=== PATIENT | female | born 1935 | race Caucasian/White ===

== ENCOUNTER 2016-05-02 11:31 | Inpatient (IN) ==
--- NOTE | 2016-05-02 11:49 | Emergency Department Note ---
Disposition Clinical Impression: Tachycardia, Unable to ambulate Lower extremity weakness Qualifiers: Laterality: bilateral Qualified Code(s): R29.898 - Other symptoms and signs involving the musculoskeletal system Disposition: Admitted As Inpatient Condition: Good Referrals: Ana Oliveros MD [Primary Care Provider] - Forms: ED Satisfaction Letter Weakness HPI - General Chief complaint: ED Weakness Stated complaint: shaky/legs are weak Time Seen by Provider: 05/02/16 11:36 Source: patient, EMS Mode of arrival: EMS Limitations: no limitations Nursing Notes Reviewed: Yes Vital Signs Reviewed: Yes - History of Present Illness HPI Narrative: E1-year-old female presents to the ER with a chief complaint of lower cavity weakness. Patient reports that Friday she fell and was seen here. States that it felt like her right leg went out from underneath her. Denies any prodromal symptoms. States that since then she has had shaking to her upper extremities. Also reports continued weakness in her lower extremities. She denies numbness, tingling, pain. No bowel or bladder incontinence. No recent illnesses. Reports that her family told her she had to come to the hospital. She reports that she does not want to be admitted. No other complaints. Pt Subjective Complaint: generalized weakness/fatigue, other (Lower extremity weakness) Onset (ago): day(s) Duration: constant Location: LLE, RLE Migration: none Pain Severity: none Pain Scale: 5 Improves with: none Worsens with: none Context: other (Recent fall) Associated symptoms: Reports: other (Denies numbness or tingling). Denies: chest pain, fever/chills, headaches - Related Data Home Medications Medication Instructions Recorded Confirmed Lactose-Reduced Food [Boost Breeze] 237 ml PO BID 10/24/15 05/02/16 Atorvastatin [Lipitor] 10 mg PO HS 12/03/15 05/02/16 Amlodipine Bes/Olmesartan Med 1 each PO DAILY 05/02/16 05/02/16 [Cuate 10-40 mg Tablet] Aspirin Enteric Coated [Aspirin EC] 81 mg PO DAILY 05/02/16 05/02/16 Carvedilol 12.5 mg PO BID 05/02/16 05/02/16 Mirtazapine [Remeron] 15 mg PO HS 05/02/16 05/02/16 Oxycodone HCl/Acetaminophen 1 each PO BID PRN 05/02/16 05/02/16 [Percocet 10-325 mg Tablet] Previous Rx's Medication Instructions Recorded Nitroglycerin 0.4 mg SL Q5MIN PRN #0 tab.subl 10/25/15 Isosorbide MONOnitrate (24 HR) 30 mg PO DAILY #30 tab.er.24h 12/05/15 [Imdur] Allergies Allergy/AdvReac Type Severity Reaction Status Date / Time No Known Allergies Allergy Verified 12/17/14 19:28 All systems ED: reviewed and negative except as stated. Constitutional: Denies: fever Cardiovascular: Denies: chest pain Respiratory: Denies: cough, dyspnea Gastrointestinal: Denies: abdominal pain Musculoskeletal: Denies: back pain, neck pain Neurological: Reports: weakness. Denies: headache, numbness, paresthesias Past Medical History - Past Medical History Attestation: Yes The following information was validated with the patient. 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: non-contributory - Social History Smoking Status: Never smoker Smokeless Tobacco Status: No Alcohol use: Reports: none Drug use: Reports: none Physical Exam - General Limitations: no limitations General appearance: alert, in no apparent distress - Head Head exam: atraumatic, normocephalic, normal inspection - Eye Eye exam: Present: normal appearance, EOMI - ENT ENT exam: normal exam - Neck Neck exam: Present: normal inspection - Chest Chest inspection: Present: normal inspection, symmetric chest wall rise - Respiratory Respiratory exam: Present: normal lung sounds bilaterally - Cardiovascular Cardiovascular exam: Present: normal rhythm, tachycardia, normal heart sounds - Abdominal Exam Abdominal exam: Present: soft, Non-Tender. Absent: tenderness - Extremities Exam Extremities exam: Present: normal inspection, full ROM - Expanded Upper Extremity Exam Shoulder exam: Present: normal inspection, full ROM Arm exam: Present: normal inspection, full ROM Elbow exam: Present: normal inspection, full ROM Forearm/Wrist exam: Present: normal inspection, full ROM Hand exam: Present: normal inspection, full ROM - Expanded Lower Extremity Exam Hip/Pelvis exam: Present: normal inspection, full ROM Upper leg exam: Present: normal inspection, full ROM Knee exam: Present: normal inspection, full ROM Lower leg exam: Present: normal inspection, full ROM Ankle exam: Present: normal inspection, full ROM Foot/toe exam: Present: normal inspection, full ROM - Neurological Exam Neurological exam: Present: alert, oriented X3, CN II-XII intact - Expanded Neurological Exam Patient oriented to: Present: person, place, time Speech: Present: fluid speech Cranial nerves: EOM function (II, III, IV, ): Normal, facial sensation (V): Normal, spinal accessory function (XI): Normal, tongue deviation (XII): Normal Motor strength - LUE: 4/5 Motor strength - RUE: 4/5 Motor strength - LLE: 4/5 Motor strength - RLE: 4/5 Sensory exam upper extremity: light touch: Normal Sensory exam lower extremity: light touch: Normal Coma Scale Eye Opening: Spontaneous Coma Scale Motor Response: Obeys Commands Coma Scale Verbal Response: Oriented Coma Scale Total: 15 - Psychiatric Psychiatric exam: Present: normal affect, normal mood - Skin Skin exam: Present: warm, dry, intact, normal color Course Course Narrative: Patient seen and examined. Vital signs reviewed. Plan for patient is basic labs, urinalysis and chest x-ray. - Reevaluation(s) Reevaluation #1: Discussed results of imaging and lab work with the patient. She requests to be discharged home. Reevaluation #2: Attempted to get orthostatic vitals on the patient. She was unable to stand and her heart rate did elevate to the 140s. Patient agreeable with admission. Reevaluation #3: CT negative for PE. Vital Signs Temperature 98.3 F 05/02/16 11:32 Pulse Rate 124 05/02/16 11:32 Respiratory Rate 18 05/02/16 11:32 Blood Pressure 138/102 05/02/16 11:32 O2 Sat by Pulse Oximetry 97 05/02/16 11:32 Temperature 98.3 F 05/02/16 11:32 Pulse Rate 120 05/02/16 18:30 Respiratory Rate 18 05/02/16 18:30 Blood Pressure 126/80 05/02/16 18:30 O2 Sat by Pulse Oximetry 95 05/02/16 18:30 Oxygen Delivery Oxygen Delivery Room Air Weakness - MDM Narrative Medical decision making narrative: 81-year-old female presents to the ER due to lower extremity weakness. Here her lab work shows no gross abnormalities. She was unable to ambulate in the department and she is persistently tachycardic. She has no focal deficits, saddle anesthesia, fevers or bowel or bladder incontinence. This case was discussed with the hospitalist. They request a CTA of the chest to rule out PE due to her persistent tachycardia. Patient will be admitted for further management. - Lab Data Lab results reviewed: Yes I reviewed the patient's lab results. Result diagrams: 05/02/16 12:22 05/02/16 12:22 Lab Results 05/02/16 05/02/16 05/02/16 Range/Units 11:39 12:22 12:22 WBC 7.7 (4.3-11.1) K/mcL RBC 3.55 L (3.82-4.97) M/mcL Hgb 11.5 (11.5-15.4) g/dL Hct 34.0 L (35.3-44.9) % MCV 95.8 (83.0-100.0) fL MCH 32.4 (28.0-33.3) pg MCHC 33.8 (31.6-35.5) g/dL RDW 12.6 (11.5-14.5) % Plt Count 160 (140-400) K/mcL MPV 10.5 (9.4-12.4) fL Immature Gran % 0.3 (0-4) % Seg Neutrophils % 78.5 % Lymphocytes % 12.5 % Monocytes % 8.5 % Eosinophils % 0.1 % Basophils % 0.1 % Neutrophils # 6.0 (1.6-8.9) K/mcL Lymphocytes # 1.0 (0.6-4.6) K/mcL Monocytes # 0.7 (0.0-1.3) K/mcL Eosinophils # 0.0 (0.0-0.6) K/mcL Basophils # 0.0 (0.0-0.2) K/mcL Sodium 134 L (136-145) mEq/L Potassium 4.2 (3.5-4.5) mEq/L Chloride 99 (98-109) mEq/L Carbon Dioxide 24 (19-29) mEq/L BUN 28 H (7-20) mg/dL Creatinine 1.11 (0.57-1.11) mg/dL Est GFR ( Amer) 57 L (> 60) Est GFR (Non-Af Amer) 47 L (> 60) BUN/Creatinine Ratio 25 (6-26) Glucose 183 H (70-99) mg/dL POC Glucose 162 H (58-89) Calculated Osmolality 288 (280-300) Calcium 9.1 (8.6-10.8) mg/dL Troponin I (0-0.03) ng/mL Urine Color (Yellow) Urine Clarity (Clear) Urine pH (5.0-8.0) pH Units Ur Specific [place] (1.010-1.025) Urine Protein (Neg-Trace) mg/dL Urine Glucose (UA) (Normal) mg/dL Urine Ketones (Negative) mg/dL Urine Blood (Negative) Urine Nitrite (Negative) Urine Bilirubin (Negative) Urine Urobilinogen (Normal) mg/dL Ur Leukocyte Esterase (Negative) Urine Microscopic RBC (0-3) per hpf Urine Microscopic WBC (0-3) per hpf Ur Squamous Epith Cells (None-Few) per lpf Urine Bacteria (None-Few) per hpf Hyaline Casts (None-Few) per lpf Ur Culture Indicated? (NO) 05/02/16 05/02/16 Range/Units 12:22 13:43 WBC (4.3-11.1) K/mcL RBC (3.82-4.97) M/mcL Hgb (11.5-15.4) g/dL Hct (35.3-44.9) % MCV (83.0-100.0) fL MCH (28.0-33.3) pg MCHC (31.6-35.5) g/dL RDW (11.5-14.5) % Plt Count (140-400) K/mcL MPV (9.4-12.4) fL Immature Gran % (0-4) % Seg Neutrophils % % Lymphocytes % % Monocytes % % Eosinophils % % Basophils % % Neutrophils # (1.6-8.9) K/mcL Lymphocytes # (0.6-4.6) K/mcL Monocytes # (0.0-1.3) K/mcL Eosinophils # (0.0-0.6) K/mcL Basophils # (0.0-0.2) K/mcL Sodium (136-145) mEq/L Potassium (3.5-4.5) mEq/L Chloride (98-109) mEq/L Carbon Dioxide (19-29) mEq/L BUN (7-20) mg/dL Creatinine (0.57-1.11) mg/dL Est GFR ( Amer) (> 60) Est GFR (Non-Af Amer) (> 60) BUN/Creatinine Ratio (6-26) Glucose (70-99) mg/dL POC Glucose (58-89) Calculated Osmolality (280-300) Calcium (8.6-10.8) mg/dL Troponin I 0.02 (0-0.03) ng/mL Urine Color Yellow (Yellow) Urine Clarity Clear (Clear) Urine pH 6.0 (5.0-8.0) pH Units Ur Specific [place] 1.018 (1.010-1.025) Urine Protein Negative (Neg-Trace) mg/dL Urine Glucose (UA) Normal (Normal) mg/dL Urine Ketones Negative (Negative) mg/dL Urine Blood Negative (Negative) Urine Nitrite Negative (Negative) Urine Bilirubin Negative (Negative) Urine Urobilinogen Normal (Normal) mg/dL Ur Leukocyte Esterase Trace H (Negative) Urine Microscopic RBC 0-3 (0-3) per hpf Urine Microscopic WBC 0-3 (0-3) per hpf Ur Squamous Epith Cells Many H (None-Few) per lpf Urine Bacteria None Seen (None-Few) per hpf Hyaline Casts None Seen (None-Few) per lpf Ur Culture Indicated? YES A (NO) - Radiology Data Radiology results reviewed: Yes I reviewed the patient's radiology results. Chest X-Ray 05/02/16 11:46 IMPRESSION: 1. No acute radiographic finding in the chest. D/ / Jesus Saenz MD / Jesus Saenz MD Interpreting Provider: Jesus Saenz MD - EKG Data EKG attestation: Yes I reviewed and interpreted this EKG. EKG results narrative: EKG demonstrates sinus tachycardia with a rate of 123 bpm. Normal axis. QRS duration 122 QTc 354 T wave inversions in leads V2 and V3 unchanged from previous. No ST elevations or depressions. Changes from previous EKG included rate. S.B.A.R. - S.B.A.R. Situation: Demographics, MOA Background: Presenting Complaint, Relevant PMH, Meds, & Allergies Assessment: Vital Signs, Course and respsone to treatment, Exam Concerns, Patient/Family Expectation, Pertinant Lab Results, Outstanding Labs Recommendation: Barrier(s) to disposition, Recommendation based on pending studies, treatments, or consults [place] Report Given to: Dr. Annmarie Bergman Repor Time: 16:09 (Requests CTA for PE r/o)
[2016-05-02] MEDS ORDERED: 0.9 % Sodium Chloride 500 ML IVC ONE ×2 (12:11→16:07)
[2016-05-02 12:27] LABS: Basophils % 0.1 %; Eosinophils % 0.1 %; Hemoglobin 11.5 g/dL (11.5-15.4); Immature Granulocytes % 0.3 % (0-4); Lymphocytes % 12.5 %; Mean Corpuscular HGB Conc 33.8 g/dL (31.6-35.5); Mean Corpuscular Hemoglobin 32.4 pg (28.0-33.3); Mean Corpuscular Volume 95.8 fL (83.0-100.0); Mean Platelet Volume 10.5 fL (9.4-12.4); Monocytes # 0.7 K/mcL (0.0-1.3); Monocytes % 8.5 %; Platelet Count 160 K/mcL (140-400); Red Blood Count 3.55 M/mcL (3.82-4.97); Red Cell Distribution Width 12.6 % (11.5-14.5); Segmented Neutrophils % 78.5 %
[2016-05-02 12:44] LABS: Calcium 9.1 mg/dL (8.6-10.8); Potassium 4.2 mEq/L (3.5-4.5)
[2016-05-02 13:50] LABS: Bilirubin,Urine Negative (Negative); Blood,Urine Negative (Negative); Color,Urine Yellow (Yellow); Glucose,Urine (UA) Normal (Normal); Ketones,Urine Negative (Negative); Leukocyte Esterase,Urine Trace (Negative); Nitrite,Urine Negative (Negative); Protein,Urine Negative (Neg-Trace); Specific Gravity,Urine 1.018 (1.010-1.025); Urobilinogen,Urine Normal (Normal)
[2016-05-02 13:55] LABS: Bacteria,Urine None Seen per hpf (None-Few); Hyaline Casts,Urine None Seen per lpf (None-Few); RBC,Urine 0-3 per hpf (0-3); Squamous Epithelial Cell,Urine Many per lpf (None-Few); WBC,Urine 0-3 per hpf (0-3)
[2016-05-02 14:01] LABS: Clarity,Urine Clear (Clear)
--- NOTE | 2016-05-02 14:57 | Emergency Department Note ---
START Narrative - START START: I examined this patient and my medical decision-making was reviewed with the WATER T[employer]ATMENT PLANT REPAIRER/PA/Advanced Practice Nurse/Resident Physician. I agree with the documented findings, disposition and treatment plan as described except to the extent set forth below. ED attending note: Patient seen with emergency medicine resident Dr. Mccormick. Please see a copy of his note for details of the H&P, evaluation, management and disposition of this patient. We independently had [id number] contact with the patient Briefly: A 81-year-old female via EMS from longterm facility for shaky legs and unsteadiness. Patient comes in persistently tachycardic but regular at 125. Head CT and other workup was negative. She was observed in the ER for 2 hours. She will get orthostatic vital signs. Plan is to discharge her back to the longterm facility. Disposition pending. Patient stable.
[2016-05-02] MEDS ORDERED: Naloxone 0.4 MG/ML INJ IVP PRN (23:34)
[2016-05-02] MEDS ORDERED: *HR* OxyCODONE/APAP 10/325 TABLET PO PRN (23:36)
[2016-05-02] MEDS ORDERED: Nitroglycerin 0.4 MG TAB.SUBL SL PRN (23:36)
--- NOTE | 2016-05-02 23:39 | Internal Med History&Physical ---
Date of Encounter: 05/02/16 Time of Encounter: 23:39 Assessment and Plan (1) NSTEMI (non-ST elevated myocardial infarction) Current visit: Yes Status: Acute Patient is known to have coronary artery disease, with [place] in september,. New onset chest pain, with abnormal EKG and elevation of troponin - likely NSTEMI. Will treat with aspirin, enoxaparin. We will check a lipid panel. Consult activities concierge for further advice (2) Tachycardia Current visit: Yes Status: Acute TSH was normal recently. CTA is negative for pulmonary embolism. Patient was given normal saline infusion and tachycardia improved. Recheck orthostatic vitals. (3) Hip pain, right Current visit: Yes Status: Acute Patient denies falls. However she has pain in the right hip on movement. X- ray of the right hip was negative for any fractures. Will consider physical therapy evaluation. The patient continues to have pain in the right hip, we will consider imaging with CT scan or MRI for further evaluation. (4) Hypertension Current visit: Yes Status: Chronic Continue home medications. Qualifiers: Hypertension type: essential hypertension Qualified Code(s): I10 - Essential (primary) hypertension (5) History of CVA (cerebrovascular accident) Current visit: No Status: Chronic Continue home medications (6) Ambulatory dysfunction Current visit: Yes Status: Acute Will consider Physical therapy eval, when medically stable. Internal Medicine - H&P: HPI Admitted From: Emergency Dept Plans for Post Hospital Care: Home History of present illness: Ms. Friedman is a 81 year old female with Past medical history significant for CAD , NSTEMI in 09/2015 (She apparently declined invasive evaluation at that time and She was not started on Plavix due to anemia and thrombocytopenia); HTN, hyperlipidemia, and prior CVA.. An echocardiogram demonstrated an ejection fraction of 40-45% - anteroseptal, inferoseptal, and inferior wall motion abnormalities. She reports that she had sharp mid sternal chest pain about 2 days ago. She did not take any medications and apparently the pain went away. She does not remember how long the pain lasted. She denies radiation of the pain, associated nausea, vomiting, palpitations, shortness of breath. She however indicates that she presented to the emergency department with chest pain today. No chest pain at the time of my evaluation. She denies shortness of breath, cough, congestion, fever, chills, abdominal pain, dysuria, hematuria. She reports that she is feeling weak and is not able to ambulate well. Her helps but apparently has cancer. She denies any falls. She was evaluated in the emergency department and was noted to have tachycardia. CTA chest was done which was negative for pulmonary embolism. She was given intravenous normal saline. She is admitted to the hospitalist service for further workup and management. Past Med Surg Social Fam HX - Past Medical History Medical history: cardiomyopathy, coronary artery disease, CVA, hypertension, myocardial infarction Psychiatric history: no psych history - Past Surgical History Surgical History: hysterectomy - Social History Smoking Status: Never smoker Smokeless Tobacco Status: No Alcohol use: none Drug use: none - Family History Mother Living Status: Hx Family Cardiac Disorders: Yes Internal Medicine - H&P: Meds Lactose-Reduced Food [Boost Breeze] 237 ml PO BID 10/24/15 [History] Nitroglycerin 0.4 mg SL Q5MIN PRN #0 tab.subl 10/25/15 [Rx] Atorvastatin [Lipitor] 10 mg PO HS 12/03/15 [History] Isosorbide MONOnitrate (24 HR) [Imdur] 30 mg PO DAILY #30 tab.er.24h 12/05/15 [ Rx] Amlodipine Bes/Olmesartan Med [Cuate 10-40 mg Tablet] 1 each PO DAILY 05/02/16 [ History] Aspirin Enteric Coated [Aspirin EC] 81 mg PO DAILY 05/02/16 [History] Carvedilol 12.5 mg PO BID 05/02/16 [History] Mirtazapine [Remeron] 15 mg PO HS 05/02/16 [History] Oxycodone HCl/Acetaminophen [Percocet 10-325 mg Tablet] 1 each PO BID PRN [History] Allergies No Known Allergies Allergy (Verified 12/17/14 19:28) All Systems PM: A 10-system review of systems was performed and is negative for pertinent findings except as documented above in the HPI. - Constitutional Vitals: Temp Pulse Resp BP Pulse Ox 98.1 F 123 16 127/78 95 05/02/16 20:05 05/02/16 20:05 05/02/16 20:05 05/02/16 20:05 05/02/16 22:15 Exam: General: Not in acute distress at the time of my evaluation HEENT: Oral mucosa is moist. No conjunctival palor or scleral icterus Neck: No obvious neck swellings Lungs: Clear to auscultation Cardiac: Regular rate and rhythm. No significant murmurs Abdomen: Soft, non tender. Bowel sounds present Genitourinary: No castillo catheter Neurological: Alert and oriented. Pt is not able to move the right lower extremity due to pain at the hip Psych: Not aggressive or agitated Extremities: no significant leg edema. Right lower extremity is externally rotated and reports pain at the hip on passive movement and some tenderness at the right hip Skin: No generalized rash Internal Med - H&P Results - Labs CBC & Chem 7: 05/03/16 03:10 05/03/16 03:10 - EKG Data -: EKG Interpreted by Myself Rate: tachycardia - EKG Data EKG comments: Shows sinus tachycardia. ST depression, T-wave inversion in leads V2 to V4 05/03/16 04:51 - Impressions ITS Impressions Chest X-Ray 05/02/16 11:46 IMPRESSION: 1. No acute radiographic finding in the chest. D/ / Jesus Saenz MD / Jesus Saenz MD Interpreting Provider: Jesus Saenz MD Chest CTA 05/02/16 16:07 IMPRESSION: 1. No evidence of pulmonary embolus. 2. Mild enlargement of the pulmonary artery which can be seen in the setting of elevated pulmonary arterial pressures. 3. Dependent right lower lobe atelectasis. 4. Coronary artery disease. 5. Nodular liver. Please correlate with clinical history of cirrhosis. D/ : / 05/02/2016 18:37:43 Jesus Saenz MD / jada Interpreting Provider: Jesus Saenz MD Hip X-Ray 05/03/16 00:00 IMPRESSION: No definite fracture. D/ / Aaron Silva MD / Aaron Silva MD Interpreting Provider: Aaron Silva MD
[2016-05-02] MEDS ORDERED: LACTOSE REDUCED FOOD PO SCH (23:45)
[2016-05-03] MEDS: Mirtazapine 15 MG TABLET PO SCH ×2 (00:28→21:49)
[2016-05-03 04:00] LABS: Hematocrit 32.2 % (35.3-44.9); Hemoglobin 10.9 g/dL (11.5-15.4); Mean Corpuscular HGB Conc 33.9 g/dL (31.6-35.5); Mean Corpuscular Hemoglobin 32.8 pg (28.0-33.3); Mean Platelet Volume 10.9 fL (9.4-12.4); Platelet Count 138 K/mcL (140-400); Red Blood Count 3.32 M/mcL (3.82-4.97); Red Cell Distribution Width 12.6 % (11.5-14.5)
[2016-05-03 04:10] LABS: BUN/Creatinine Ratio 24 (6-26); Blood Urea Nitrogen 20 mg/dL (7-20); Calcium 8.4 mg/dL (8.6-10.8); Carbon Dioxide 23 mEq/L (19-29); Chloride 101 mEq/L (98-109); Glucose 97 mg/dL (70-99); Magnesium 1.6 mg/dL (1.6-2.6); Osmolality,Calculated 279 (280-300); Potassium 3.8 mEq/L (3.5-4.5); Sodium 133 mEq/L (136-145); eGFR For African Americans > 60 (> 60); eGFR For Non-African Americans > 60 (> 60)
[2016-05-03] MEDS ORDERED: Aspirin 325 MG TABLET PO ONE (04:32)
[2016-05-03] MEDS: *HR* Enoxaparin 60 MG/0.6 ML SYRINGE SQ SCH ×2 (05:13→17:01)
[2016-05-03] MEDS: 0.9 % Sodium Chloride 1,000 ML IVC SCH ×2 (05:14→21:48)
[2016-05-03] MEDS: Isosorbide MONOnitrate (24 HR) 30 MG TAB.ER.24H PO SCH (09:41)
[2016-05-03] MEDS: Valsartan 160 MG TABLET PO SCH (09:41)
[2016-05-03] MEDS: amLODIPine 5 MG TABLET PO SCH (09:41)
--- NOTE | 2016-05-03 09:58 | Cardiology Consult Note ---
Date of Encounter: 05/03/16 Time of Encounter: 09:55 Assessment and Plan (1) NSTEMI (non-ST elevated myocardial infarction) Current Visit: Yes Status: Acute Presumed CAD diagnosed September 2015 after troponin elevation. EF 40-45% with inferior, inferoseptal, and inferolateral wall motion abnormalities. Presents with primary complaint of fall, but troponin elevation noted. ECG demonstrates findings similar to previous - previous inferior myocardial infarction suggested, lateral ST and T-wave changes possibly due to ischemia. Patient denies any chest pain. As we have done previously, we discussed the risks, benefits, and alternatives to a cardiac catheterization. She continues to be adamantly opposed to any invasive procedures. She understands the risks of her decision, which includes worsening condition and cardiac causes of . Daughter, Isabela, was on speaker phone during this conversation. Recommend continued medical therapy - aspirin, statin, beta garth, Imdur, and ARB. Continue therapeutic Lovenox for 24-48 hours. History of thrombocytopenia and Plavix previously withheld. Since she is chest pain-free currently, so we will continue to withhold dual antiplatelet therapy for now. Echocardiogram not obtained as it is unlikely to policy change clerk. No further inpatient cardiology recommendations. Cardiology will sign off. Please call with any questions or concerns. (2) Cardiomyopathy Current Visit: No Status: Chronic Cardiomyopathy (previous EF 40-45%), likely ischemic in nature given ECG and history of troponin elevations. See recommendations above. Qualifiers: Cardiomyopathy type: unspecified Qualified Code(s): I42.9 - Cardiomyopathy , unspecified Discussion w patient/family: The assessment and plan as outlined above was discussed with the patient and/or family members who expressed understanding and agreement. All questions were answered. Thank you for involving us in the care of your patient. Please call with any questions. History of Present Illness Consult date: 05/03/16 Requesting physician: Patrick Luciano Consult reason: Elevated troponin Chief complaint: Falls History of present illness: Ms. Friedman is a 81 year old female who presented to the hospital on 05/02/201605/02 with a primary complaint of lower extremity weakness. Patient reports fall last weekend in parking lot of grocery store. Also reports prior falls as well. She denied chest pain in the ER and continues to deny chest pain currently. For unclear reasons, serial troponins were obtained - currently 1.52. She has a known history of prior troponin elevations, cardiomyopathy with EF 40- 45% - diagnosed in September 2015. Currently, she seems to be comfortable in bed. She denies chest pain or discomfort. She denies nausea, vomiting, diaphoresis. Her only concern seems to be related to recent falls. Past Med Surg Social Fam HX - Past Medical History Medical history: cardiomyopathy, coronary artery disease, CVA, hypertension, myocardial infarction Psychiatric history: no psych history - Past Surgical History Surgical History: hysterectomy - Social History Smoking Status: Never smoker Smokeless Tobacco Status: No Alcohol use: none Drug use: none - Family History Mother Living Status: Hx Family Cardiac Disorders: Yes Medications and Allergies Lactose-Reduced Food [Boost Breeze] 237 ml PO BID 10/24/15 [History] Nitroglycerin 0.4 mg SL Q5MIN PRN #0 tab.subl 10/25/15 [Rx] Atorvastatin [Lipitor] 10 mg PO HS 12/03/15 [History] Isosorbide MONOnitrate (24 HR) [Imdur] 30 mg PO DAILY #30 tab.er.24h 12/05/15 [ Rx] Amlodipine Bes/Olmesartan Med [Cuate 10-40 mg Tablet] 1 each PO DAILY 05/02/16 [ History] Aspirin Enteric Coated [Aspirin EC] 81 mg PO DAILY 05/02/16 [History] Carvedilol 12.5 mg PO BID 05/02/16 [History] Mirtazapine [Remeron] 15 mg PO HS 05/02/16 [History] Oxycodone HCl/Acetaminophen [Percocet 10-325 mg Tablet] 1 each PO BID PRN [History] Allergies No Known Allergies Allergy (Verified 12/17/14 19:28) All Systems Review: A 10-system review of systems was performed and is negative for pertinent findings except as documented above in the HPI. - Cardiovascular Cardiovascular: as per HPI - Musculoskeletal Musculoskeletal: abnormal gait, muscle weakness Physical Examination Vital Signs, Last 4 Hours Temp Pulse Resp BP Pulse Ox 05/03/16 07:32 97.7 F 70 16 166/82 95 General: Conversant, No Apparent Distress HEENT: Atraumatic, Normocephaly, Mucus Membranes Moist Neck: No JVD, Normal carotid pulses Cardiac: Other (Distant, but regular. Very mild diastolic murmur noted.) Lungs: Normal Breath Sounds, No Wheeze, Rales, Rhonchi Neuro: Alert and responsive, No focal deficits noted Abdomen: Soft, Non-Tender Skin: No rashes noted on visualized skin Musculoskeletal: No Chest Wall Tenderness Extremities: No Clubbing, No Cyanosis, No Edema Results 05/03/16 03:10 05/03/16 03:10 Lab Results 05/03/16 08:36 Troponin I 1.52 H* - Imaging and Cardiology Echo: report reviewed - EKG Interpretation EKG results cardiology: personally reviewed Consult Discharge Plan - Plan Referrals: Ana Oliveros MD [Primary Care Provider] -
--- NOTE | 2016-05-03 13:29 | Discharge Summary ---
Date of Encounter: 05/03/16 Time of Encounter: 09:30 - Discharge Diagnosis (1) Chest pain Status: Acute (2) NSTEMI (non-ST elevated myocardial infarction) Priority: Primary Status: Acute (3) Elevated troponin Status: Acute (4) Tachycardia Priority: Primary Status: Resolved (5) Hip pain, right Priority: Primary Status: Acute (6) Hypertension Priority: Secondary Status: Chronic Comments: Uncontrolled upon arrival, much better controlled after her home medications were resumed. At home, patient is on amlodipine/olmesartan 10-40 and her amlodipine was continued during this admission. She is also on carvedilol 12.5 twice a day, Imdur 30 mg daily and these were both continued. Recommend daily blood pressure checks at home, keeping a log, and following up outpatient Qualifiers: Hypertension type: essential hypertension Qualified Code(s): I10 - Essential (primary) hypertension (7) CARRILLO (acute kidney injury) Priority: Primary Status: Resolved (8) CVA, old, ataxia Priority: Secondary Status: Chronic Comments: No new focal neurological weaknesses (9) Cardiomyopathy Priority: Secondary Status: Chronic Qualifiers: Cardiomyopathy type: unspecified Qualified Code(s): I42.9 - Cardiomyopathy , unspecified (10) Hyponatremia with decreased serum osmolality Priority: Secondary Status: Chronic Comments: chronic, mild, stable (11) Thrombocytopenia Priority: Secondary Status: Chronic Comments: continuing to hold plavix upon discharge. no signs of active bleeding; hemodynamically stable (12) Abnormal urinalysis Priority: Primary Status: Ruled-out Comments: Urine culture negative, patient denied dysuria - Discharge Medications Home Medications: Lactose-Reduced Food [Boost Breeze] 237 ml PO BID 10/24/15 [History] Nitroglycerin 0.4 mg SL Q5MIN PRN #0 tab.subl 10/25/15 [Rx] Atorvastatin [Lipitor] 10 mg PO HS 12/03/15 [History] Isosorbide MONOnitrate (24 HR) [Imdur] 30 mg PO DAILY #30 tab.er.24h 12/05/15 [ Rx] Amlodipine Bes/Olmesartan Med [Cuate 10-40 mg Tablet] 1 each PO DAILY 05/02/16 [ History] Aspirin Enteric Coated [Aspirin EC] 81 mg PO DAILY 05/02/16 [History] Carvedilol 12.5 mg PO BID 05/02/16 [History] Mirtazapine [Remeron] 15 mg PO HS 05/02/16 [History] Oxycodone HCl/Acetaminophen [Percocet 10-325 mg Tablet] 1 each PO BID PRN [History] Allergies/Adverse Reactions: Allergies No Known Allergies Allergy (Verified 12/17/14 19:28) Date of admission: 05/03/16 06:04 Primary care physician: Ana Oliveros MD Consults: 05/03/16 11:13 Consult to Occupational Therapy [CONS] Routine Comment: Evaluate, develop and implement POC Discharging clinician: Noris Calloway Anticipated date of discharge: 05/03/16 (patient refusing interventions) - Patient Status Condition: Good - Discharge Instructions Follow Up With: Ana Oliveros MD [Primary Care Provider] - Hospital course: Ms. Friedman is a 81 year old female - Time Spent with Patient Total time spent providing and/or coordinating discharge services: - Constitutional Vitals: Temp Pulse Resp BP Pulse Ox 97.4 F L 65 16 95/61 93 L 05/03/16 10:55 05/03/16 10:55 05/03/16 10:55 05/03/16 10:55 05/03/16 10:55 - VTE Reasons for not Prescribing Prophylaxis: Not indicated-Anticoagulated or INR therapeutic
--- NOTE | 2016-05-03 13:39 | Internal Med Progress Note ---
Date of Encounter: 05/03/16 Time of Encounter: 09:00 - Assessment and plan (1) Chest pain Current Visit: Yes Status: Resolved Assessment and plan: Patient currently denies chest pain or shortness of breath however her troponin is still trending up. Cardiology is on board and have offered the patient a left heart catheter. Similar to her most recent admission and NSTEMI , patient is adamant that she will not have any invasive procedures including a heart catheter. She is aware of the risks versus benefits and chooses to decline invasive procedures. She is amenable to staying in receiving therapeutic Lovenox over the next day or so. She is also adamant that she will not go to a skilled nursing. She states her is sick with cancer at home and she has to take care of him. Chest x-ray negative. Chest CTA negative for PE. On examination, lungs clear to auscultation bilaterally with good aeration. Given increase in troponin, likely active NSTEMI. ITS Impressions Chest X-Ray 05/02/16 11:46 IMPRESSION: 1. No acute radiographic finding in the chest. D/ / Jesus Saenz MD / Jesus Saenz MD Interpreting Provider: Jesus Saenz MD Chest CTA 05/02/16 16:07 IMPRESSION: 1. No evidence of pulmonary embolus. 2. Mild enlargement of the pulmonary artery which can be seen in the setting of elevated pulmonary arterial pressures. 3. Dependent right lower lobe atelectasis. 4. Coronary artery disease. 5. Nodular liver. Please correlate with clinical history of cirrhosis. D/ : / 05/02/2016 18:37:43 Jesus Saenz MD / jada Interpreting Provider: Jesus Saenz MD Qualifiers: Chest pain type: chest pain due to myocardial ischemia Ischemic chest pain type: unstable angina pectoris Qualified Code(s): I20.0 - Unstable angina (2) NSTEMI (non-ST elevated myocardial infarction) Current Visit: Yes Status: Acute (3) Elevated troponin Current Visit: No Status: Acute Assessment and plan: Initial troponin negative, repeat troponins trending up with most recent troponin 1.52. Patient continues to deny chest pain or shortness of breath. Cardiology on board, she has refused a left heart catheter. We will continue therapeutic Lovenox for the next day or so. (4) Tachycardia Current Visit: Yes Status: Resolved (5) Hip pain, right Current Visit: Yes Status: Acute Assessment and plan: Plain films negative, patient currently denies hip pain. No indication for CT at this time. ITS Impressions Hip X-Ray 05/03/16 00:00 IMPRESSION: No definite fracture. D/ / Aaron Silva MD / Aaron Silva MD Interpreting Provider: Aaron Silva MD (6) Hypertension Current Visit: Yes Status: Chronic Assessment and plan: Uncontrolled upon arrival, much better controlled after her home medications were resumed. At home, patient is on amlodipine/olmesartan 10-40 and her amlodipine was continued during this admission. Her olmesartan was held due to acute kidney injury which has since resolved. She is currently borderline hypotensive so will not be resumed at this time. She is also on carvedilol 12.5 twice a day, Imdur 30 mg daily and these were both continued. We will continue to trend and adjust medications as indicated. If she becomes hypertensive, will add an Arb back in Qualifiers: Hypertension type: essential hypertension Qualified Code(s): I10 - Essential (primary) hypertension (7) CARRILLO (acute kidney injury) Current Visit: No Status: Resolved (8) CVA, old, ataxia Current Visit: No Status: Chronic Assessment and plan: No new focal neurological weaknesses. (9) Cardiomyopathy Current Visit: No Status: Chronic Assessment and plan: No echocardiogram indicated per cardiology recommendations as it would not change her care. She is euvolemic on examination. No lower extremity edema. She denies shortness of breath. Chronic systolic heart failure, no acute exacerbation. (10) Hyponatremia with decreased serum osmolality Current Visit: No Status: Chronic Assessment and plan: Chronic, mild, stable (11) Thrombocytopenia Current Visit: No Status: Chronic Assessment and plan: No signs of active bleeding. We will continue to hold Plavix (12) Abnormal urinalysis Current Visit: No Status: Ruled-out Assessment and plan: Patient denies dysuria, urine culture negative - Subjective Interval history: Patient seen and examined. On examination, patient resting in bed. Patient alert and oriented 3. She denies pain or shortness of breath at this time. She denies dysuria. - Constitutional Vitals: Temp Pulse Resp BP Pulse Ox 97.4 F L 65 16 95/61 93 L 05/03/16 10:55 05/03/16 10:55 05/03/16 10:55 05/03/16 10:55 05/03/16 10:55 General appearance: Present: A&O X 3, pleasant, no acute distress, answers questions appropriately - Head Head exam: Present: atraumatic, normocephalic - Eye Eye exam: Present: PERRL, conjuntiva pink, sclera anicteric Pupils: Present: PERRL - Neck Neck exam general surgery: Present: supple, trachea midline. Absent: lymphadenopathy - Respiratory Respiratory exam: Present: CTAB. Absent: accessory muscle use, rales, respiratory distress, rhonchi, wheezes - Cardiovascular Cardiovascular exam: Present: RRR, +S1, +S2. Absent: diastolic murmur, gallop, rubs, systolic murmur - GI/Abdominal GI/Abdominal exam: Present: normal bowel sounds, soft, no peritoneal signs. Absent: distended, tenderness - Extremities Exam Extremities exam: Present: warm, radial pulses palpable and symetrical. Absent : calf tenderness, cyanotic, pedal edema - Neurological Exam Neurological exam: Present: alert, CN II-XII intact, oriented X3, no focal deficits, strengths equal and symetr throughout. Absent: pronater drift, facial droop, speech deficit - Skin Skin exam: Present: dry, intact, normal color, warm Internal Medicine: Result - Labs CBC & Chem 7: 05/03/16 03:10 05/03/16 03:10 Labs: Cardiac Enzymes 05/03/16 Range/Units 08:36 Troponin I 1.52 H* (0-0.03) ng/mL - VTE Reasons for not Prescribing Prophylaxis: Not indicated-Anticoagulated or INR therapeutic Consult Discharge Plan - Plan Referrals: Ana Oliveros MD [Primary Care Provider] -
--- NOTE | 2016-05-03 17:50 | Electrocardiograph Report ---
[address] [place], [place] [address] Test Date: 2016-05-02 Pat Name: Esmer Friedman Department: 103 Room: 3B12 Gender: F Account Technician: : 1935 Requested By: Peter Mccormick Order Number: [id number] Reading MD: Ana Cornejo Measurements Intervals [place] Rate: 123 P: MO: 0 QRS: 51 QRSD: 122 T: 99 QT: 281 QTc: 354 Interpretive Statements ATRIAL FIBRILLATION WITH RAPID VENTRICULAR RESPONSE POSSIBLE INFERIOR MYOCARDIAL INFARCTION, OF INDETERMINATE AGE ST DEVIATION AND MODERATE T-WAVE ABNORMALITY, CONSIDER ANTERIOR ISCHEMIA Electronically Signed On 05-03-2016 17:48:37 EST by Ana Cornejo
--- NOTE | 2016-05-03 18:07 | Electrocardiograph Report ---
[address] [place] [address] Test Date: 2016-05-03 Pat Name: Esmer Friedman Department: 113 Room: 3B12 Gender: F Working Second Hand: : 1935 Requested By: Noris Calloway Order Number: [id number] Reading MD: Ana Cornejo Measurements Intervals [place] Rate: 72 P: 54 NM: 187 QRS: 11 QRSD: 99 T: 83 QT: 364 QTc: 388 Interpretive Statements SINUS RHYTHM POSSIBLE INFERIOR MYOCARDIAL INFARCTION, OF INDETERMINATE AGE Electronically Signed On 05-03-2016 18:05:20 EST by Ana Cornejo
[2016-05-03] MEDS ORDERED: Acetaminophen 325 MG TABLET PO PRN (21:34)
[2016-05-04] MEDS: *HR* Enoxaparin 60 MG/0.6 ML SYRINGE SQ SCH ×2 (05:17→17:59)
[2016-05-04 08:49] LABS: Basophils % 0.4 %; Eosinophils % 0.4 %; Hemoglobin 10.6 g/dL (11.5-15.4); Immature Granulocytes % 0.4 % (0-4); Immature Platelets 2.7 % (1.1-6.1); Lymphocytes # 0.9 K/mcL (0.6-4.6); Lymphocytes % 17.6 %; Mean Corpuscular HGB Conc 34.2 g/dL (31.6-35.5); Mean Corpuscular Hemoglobin 32.4 pg (28.0-33.3); Mean Corpuscular Volume 94.8 fL (83.0-100.0); Mean Platelet Volume 9.7 fL (9.4-12.4); Monocytes # 0.6 K/mcL (0.0-1.3); Monocytes % 11.4 %; Neutrophils # 3.4 K/mcL (1.6-8.9); Platelet Count 143 K/mcL (140-400); Red Blood Count 3.27 M/mcL (3.82-4.97); Red Cell Distribution Width 12.2 % (11.5-14.5); Segmented Neutrophils % 69.8 %
[2016-05-04 09:00] LABS: BUN/Creatinine Ratio 22 (6-26); Blood Urea Nitrogen 18 mg/dL (7-20); Calcium 7.9 mg/dL (8.6-10.8); Carbon Dioxide 22 mEq/L (19-29); Chloride 105 mEq/L (98-109); Glucose 101 mg/dL (70-99); Magnesium 1.6 mg/dL (1.6-2.6); Osmolality,Calculated 282 (280-300); Phosphorous 2.3 mg/dL (2.3-4.7); Sodium 135 mEq/L (136-145); eGFR For African Americans > 60 (> 60); eGFR For Non-African Americans > 60 (> 60)
[2016-05-04] MEDS: Isosorbide MONOnitrate (24 HR) 30 MG TAB.ER.24H PO SCH (09:08)
[2016-05-04] MEDS: amLODIPine 5 MG TABLET PO SCH (09:08)
[2016-05-04] MEDS: Aspirin Enteric Coated 81 MG Tablet PO SCH (09:08)
[2016-05-04] MEDS: Valsartan 160 MG TABLET PO SCH (09:08)
[2016-05-04 12:17] LABS: Chol/HDL Ratio 2.4 (0-4.9)
--- NOTE | 2016-05-04 13:33 | Internal Med Progress Note ---
Date of Encounter: 05/04/16 Time of Encounter: 13:28 - Assessment and plan (1) NSTEMI (non-ST elevated myocardial infarction) Current Visit: Yes Status: Acute Assessment and plan: CAD diagnosed in 09/2015 EF: 40-45% wiht inferior, inferoseptal, and inferolateral wall motion abnormalities admitted s/p fall, noted to have elevated TNI continues to refuse LHC, denies any chest pain Continue medical therapy-ASA, Statin, BB, Imdur, ARB Will continue Lovenox therapeutic dose today (D/C in am) PT eval requested for re-evaluation patient will benefit from SNF after discharge, she is an unsafe discharge to home given frail status (2) CAD (coronary artery disease) Current Visit: Yes Status: Chronic Qualifiers: Coronary Disease-Associated Artery/Lesion type: unspecified vessel or lesion type [place] vs. transplanted heart: [place] heart Associated angina: angina presence unspecified Qualified Code(s): I25.10 - Atherosclerotic heart disease of [place] coronary artery without angina pectoris (3) Hypertension Current Visit: Yes Status: Chronic Assessment and plan: BP within acceptable range continue home medications Qualifiers: Hypertension type: essential hypertension Qualified Code(s): I10 - Essential (primary) hypertension (4) CVA, old, ataxia Current Visit: No Status: Chronic (5) Cardiomyopathy Current Visit: No Status: Chronic Qualifiers: Cardiomyopathy type: unspecified Qualified Code(s): I42.9 - Cardiomyopathy , unspecified - Subjective Interval history: Patient seen and examined at bedside. REsting in bed and in no distress. Denies any chest pain or discomfort at this time. Reported to have history of CAD and NSTEMI with persistent refusal of treatment. SNF placement was recommended by PT, initially patient refused however agreeable at this time. Will get PT evaluation again and get social work consultation. Palliative care consultation requested to establish goals of care and discharge plan. As per nursing staff, patient's mental status waxes and wanes - Constitutional Vitals: Temp Pulse Resp BP Pulse Ox 98.2 F 85 17 144/72 97 05/04/16 11:02 05/04/16 11:02 05/04/16 11:02 05/04/16 11:02 05/04/16 11:02 General appearance: Present: A&O X 3 (frail), pleasant, no acute distress, answers questions appropriately - Head Head exam: Present: atraumatic, normocephalic - Eye Eye exam: Present: normal appearance, conjuntiva pink, sclera anicteric - Respiratory Respiratory exam: Present: CTAB. Absent: respiratory distress, wheezes - Cardiovascular Cardiovascular exam: Present: RRR, +S1, +S2 - GI/Abdominal GI/Abdominal exam: Present: normal bowel sounds, soft, no peritoneal signs. Absent: distended, tenderness - Extremities Exam Extremities exam: Present: warm, radial pulses palpable and symetrical. Absent : calf tenderness, cyanotic, pedal edema - Neurological Exam Neurological exam: Present: alert, oriented X3 - Psychiatric Psychiatric exam: Present: normal affect, normal mood Internal Medicine: Result - Labs CBC & Chem 7: 05/04/16 08:38 05/04/16 08:38 Labs: Short CBC 05/04/16 Range/Units 08:38 WBC 4.8 (4.3-11.1) K/mcL Hgb 10.6 L (11.5-15.4) g/dL Hct 31.0 L (35.3-44.9) % Plt Count 143 (140-400) K/mcL Neutrophils # 3.4 (1.6-8.9) K/mcL BMP 05/04/16 08:38 Sodium 135 L Potassium 4.0 Chloride 105 Carbon Dioxide 22 BUN 18 Creatinine 0.83 Glucose 101 H Calcium 7.9 L - VTE Reasons for not Prescribing Prophylaxis: Not indicated-Anticoagulated or INR therapeutic Consult Discharge Plan - Plan Referrals: Ana Oliveros MD [Primary Care Provider] -
[2016-05-04] MEDS: 0.9 % Sodium Chloride 1,000 ML IVC SCH (18:00)
--- NOTE | 2016-05-04 20:53 | Palliative - Consult Note ---
Date of Encounter: 05/04/16 Time of Encounter: 16:00 - Assessment and Plan (1) Goals of care, counseling/discussion Current Visit: Yes Status: Acute Assessment and plan: Initiated goals of care discussion with the patient and her spouse, Ryder. Ms. Friedman indicated that in the event of cardiac arrest, she would not want heroic measures taken. She did ask that this be discussed with her daughter prior to further action taken place. We will arrange for family meeting once the patient's daughter is available. In regards to discharge planning, patient is seeking insurance approval for placement in rehabilitation. environmental services worker will follow for discharge needs. The palliative care to continue to follow. (2) Chronic pain Current Visit: Yes Status: Acute Assessment and plan: Chronic generalized pain related to osteoarthritis. Ms. Friedman has been treated for this as an outpatient with her primary care provider. She has been on chronic opioid therapy dating back to at least July 2014. She was recently escalated to oxycodone/acetaminophen 10 mg/325 in February 2016. She has tolerated this well and does have a pain contract with her primary care provider. Recommend continuing current dose and monitor. Qualifiers: Chronic pain type: other chronic pain Qualified Code(s): G89.29 - Other chronic pain (3) NSTEMI (non-ST elevated myocardial infarction) Current Visit: Yes Status: Acute Assessment and plan: Cardiology consult, medical management. Palliative-CN HPI - Data of Consult Patient: new to practice Consult date: 05/04/16 Requesting Physician: Noris Da Silva Primary Care Provider: Ana Oliveros MD - Consult Narrative Palliative Care/Comfort Measures: Palliative care Reason for consult: Goals of care History of present illness: Ms. Friedman is a 81 year old female presenting to [facility] with chest pain that started 2 days prior to admission. Workup and evaluation in the emergency department revealed NSTEMI. She was admitted to the hospital for further workup and care. Cardiology services were consulted and recommend medical management given the patient's adamant refusal of any invasive cardiac procedures. The palliative care team was consulted to assist with goals of care discussions. Ms. Friedman lives at home with her of 63 years. She has home health nurses, along with passport services. Passport services are available in the home one hour in the morning, and 2 hours in the afternoon 7 days a week. Within the next month, the patient and her were planning on moving to an assisted living. Ms. Friedman is increasingly more weak and frail. She is unable to ambulate without the assistance of a walker and additional help from caregivers. Physical therapy evaluation recommended long-term facility upon discharge for further rehabilitation. Ms. Friedman is currently chest pain-free, she denies difficulty breathing, changes in her appetite, difficulties with bowel or bladder function. She does admit to progressive weakness and falls. CC: Noris Da Silva Past Med Surg Social Fam HX - Past Medical History Source: patient, old records reviewed Medical history: arthritis, cardiomyopathy, coronary artery disease, CVA, hypertension, myocardial infarction Psychiatric history: no psych history - Past Surgical History Surgical History: hysterectomy - Social History Smoking Status: Never smoker Smokeless Tobacco Status: No Alcohol use: none Drug use: none Current living situation: Home, With Family Activity Level: Uses cane/walker, Mostly sedentary - Family History Mother Living Status: Hx Family Cardiac Disorders: Yes Medications and Allergies Lactose-Reduced Food [Boost Breeze] 237 ml PO BID 10/24/15 [History] Nitroglycerin 0.4 mg SL Q5MIN PRN #0 tab.subl 10/25/15 [Rx] Atorvastatin [Lipitor] 10 mg PO HS 12/03/15 [History] Isosorbide MONOnitrate (24 HR) [Imdur] 30 mg PO DAILY #30 tab.er.24h 12/05/15 [ Rx] Amlodipine Bes/Olmesartan Med [Cuate 10-40 mg Tablet] 1 each PO DAILY 05/02/16 [ History] Aspirin Enteric Coated [Aspirin EC] 81 mg PO DAILY 05/02/16 [History] Carvedilol 12.5 mg PO BID 05/02/16 [History] Mirtazapine [Remeron] 15 mg PO HS 05/02/16 [History] Oxycodone HCl/Acetaminophen [Percocet 10-325 mg Tablet] 1 each PO BID PRN [History] Allergies No Known Allergies Allergy (Verified 12/17/14 19:28) - Constitutional Constitutional ROS PAL: fatigue, frequent falls, no decreased appetite, no weight loss - EENT Eyes: requires corrective lenses (For reading only), no change in vision Ears, nose, mouth, throat: no sinus pain, no dysphagia, no sore throat - Cardiovascular Cardiovascular ROS: irregular heart rhythm, no chest pain, no chest pain with activity, no dyspnea on exertion, no leg edema, no pedal edema - Respiratory Respiratory: no cough, no dyspnea, no dyspnea on exertion, no wheezing - Gastrointestinal Gastrointestinal: no abdominal pain, no bloating, no constipation, no diarrhea, no nausea, no vomiting - Genitourinary Palliative ROS female: no difficulty voiding, no dysuria, no urinary frequency - Musculoskeletal Musculoskeletal ROS IM: muscle weakness - Integumentary ROS Integumentary: no sores, no wounds - Neurological Neurological ROS: frequent falls, weakness (Global), no confusion, no focal weakness - Psychiatric Psychiatric general PM: no anxiety Palliative Care-Exam - Constitutional Vitals: Temp Pulse Resp BP Pulse Ox 98.9 F 63 15 135/69 95 05/04/16 19:46 05/04/16 19:46 05/04/16 19:46 05/04/16 19:46 05/04/16 19:46 General appearance: Present: cooperative, no acute distress - Eye Eye exam: Present: EOMI Pupils: Present: PERRL - ENT ENT exam: Present: mucous membranes moist - Neck Neck exam: Present: normal inspection - Respiratory Respiratory exam: Present: CTAB. Absent: accessory muscle use, respiratory distress - Cardiovascular Cardiovascular exam: Present: RRR. Absent: systolic murmur, tachycardia - GI/Abdominal Exam GI/Abdominal exam: Present: normal bowel sounds, soft. Absent: tenderness - Rectal Rectal exam: Present: deferred - Extremities Exam Extremities exam: Absent: pedal edema - Neurological Exam Neurological exam: Present: alert, oriented X3, no focal deficits, strengths equal and symetr throughout - Psychiatric Psychiatric exam: Absent: agitated, anxious Internal Medicine - CN: Reslt - Labs CBC & Chem 7: 05/04/16 08:38 05/04/16 08:38 Labs: Short CBC 05/04/16 Range/Units 08:38 WBC 4.8 (4.3-11.1) K/mcL Hgb 10.6 L (11.5-15.4) g/dL Hct 31.0 L (35.3-44.9) % Plt Count 143 (140-400) K/mcL Neutrophils # 3.4 (1.6-8.9) K/mcL BMP 05/04/16 08:38 Sodium 135 L Potassium 4.0 Chloride 105 Carbon Dioxide 22 BUN 18 Creatinine 0.83 Glucose 101 H Calcium 7.9 L Consult Discharge Plan - Plan Referrals: Ana Oliveros MD [Primary Care Provider] - Palliative Quality Palliative Quality: Screen for Code Status: Yes, Screen for Goals of Care: Yes, Screen for Pain: Yes, If Pain Regimen Started, Initiate Bowel Regimen: NA, Screen for Nausea/Vomitting: Yes
[2016-05-04] MEDS: Mirtazapine 15 MG TABLET PO SCH (21:23)
[2016-05-05] MEDS: *HR* Enoxaparin 60 MG/0.6 ML SYRINGE SQ SCH (05:14)
[2016-05-05] MEDS: Valsartan 160 MG TABLET PO SCH (09:00)
[2016-05-05] MEDS: amLODIPine 5 MG TABLET PO SCH (09:01)
[2016-05-05] MEDS: Aspirin Enteric Coated 81 MG Tablet PO SCH (09:01)
[2016-05-05] MEDS: Isosorbide MONOnitrate (24 HR) 30 MG TAB.ER.24H PO SCH (09:01)
--- NOTE | 2016-05-05 12:04 | Palliative Progress Note ---
Date of Encounter: 05/05/16 Time of Encounter: 10:30 - Assessment and plan (1) Goals of care, counseling/discussion Current Visit: Yes Status: Acute Assessment and plan: Follow up goals of care conversation with the patient, her daughter-Isabela, and spouse-Ryder. Ms. Friedman once again confirmed that she would not want any heroic measures taken in the event of a cardiac arrest. Code status will be changed to DNR-Arrest per patient's wishes. In regards to discharge planning, Ms. Friedman is aware that her spouse cannot manage her care at home due to her profound weakness. She required max assist x2 to transition from the bed to bedside commode. After seeing the poor mobility, Ms Friedman's family is agreeable with short term rehab upon discharge from the hospital. Ms. Friedman reluctantly agreed with the assessment of the physical therapist. Her spouse's first choice is [facility] given its location near their home. veterans services specialist will follow for discharge needs. (2) Chronic pain Current Visit: Yes Status: Acute Qualifiers: Chronic pain type: other chronic pain Qualified Code(s): G89.29 - Other chronic pain (3) NSTEMI (non-ST elevated myocardial infarction) Current Visit: Yes Status: Acute Assessment and plan: Recommendations per Cardiology - Time Spent With Patient Total time spent is greater than 50% in coordination of care (as documented) at patient's floor/unit and/or counseling patient: - Subjective Interval history: Ms. Friedman is llying in bed with family at bedside. She denies chest pain, shortness of breath, but does confirm weakness. Ms. Friedman would still like to return home upon discharge. - Constitutional Vitals: Abnormal lab results RBC 3.27 M/mcL (3.82-4.97) L 05/04/16 08:38 Hgb 10.6 g/dL (11.5-15.4) L 05/04/16 08:38 Hct 31.0 % (35.3-44.9) L 05/04/16 08:38 Sodium 135 mEq/L (136-145) L 05/04/16 08:38 Glucose 101 mg/dL (70-99) H 05/04/16 08:38 POC Glucose 162 (58-89) H 05/02/16 11:39 Calcium 7.9 mg/dL (8.6-10.8) L 05/04/16 08:38 Troponin I 1.52 ng/mL (0-0.03) H* 05/03/16 08:36 Ur Leukocyte Esterase Trace (Negative) H 05/02/16 13:43 Ur Squamous Epith Cells Many per lpf (None-Few) H 05/02/16 13:43 Ur Culture Indicated? YES (NO) A 05/02/16 13:43 General appearance: Present: cooperative, no acute distress - Respiratory Respiratory exam: Present: decreased breath sounds. Absent: accessory muscle use, respiratory distress - Cardiovascular Cardiovascular exam: Present: RRR - GI/Abdominal GI/Abdominal exam: Present: normal bowel sounds, soft. Absent: tenderness - Extremities Exam Extremities exam: Present: normal inspection - Neurological Exam Neurological exam: Present: alert, oriented X3, no focal deficits, strengths equal and symetr throughout (global weakness) - Psychiatric Psychiatric exam: Absent: agitated, anxious - Skin Skin exam: Present: dry, warm Palliative Quality Palliative Quality: Screen for Code Status: Yes, Screen for Goals of Care: Yes, Screen for Pain: Yes, If Pain Regimen Started, Initiate Bowel Regimen: NA, Screen for Nausea/Vomitting: Yes - Labs CBC & Chem 7: 05/04/16 08:38 05/04/16 08:38 Consult Discharge Plan - Plan Referrals: Ana Oliveros MD [Primary Care Provider] -
--- NOTE | 2016-05-05 13:14 | Internal Med Progress Note ---
Date of Encounter: 05/05/16 Time of Encounter: 13:40 - Assessment and plan (1) NSTEMI (non-ST elevated myocardial infarction) Current Visit: Yes Status: Acute Assessment and plan: CAD diagnosed in 09/2015 EF: 40-45% with inferior, inferoseptal, and inferolateral wall motion abnormalities admitted s/p fall, noted to have elevated TNI continues to refuse LHC, denies any chest pain Continue medical therapy-ASA, Statin, BB, Imdur, ARB Discontinued therapeutic dose of Lovenox Discharge pending rehabilitation placement (2) CAD (coronary artery disease) Current Visit: Yes Status: Chronic Qualifiers: Coronary Disease-Associated Artery/Lesion type: unspecified vessel or lesion type [place] vs. transplanted heart: [place] heart Associated angina: angina presence unspecified Qualified Code(s): I25.10 - Atherosclerotic heart disease of [place] coronary artery without angina pectoris (3) Hypertension Current Visit: Yes Status: Chronic Assessment and plan: BP within acceptable range continue home medications Qualifiers: Hypertension type: essential hypertension Qualified Code(s): I10 - Essential (primary) hypertension (4) CVA, old, ataxia Current Visit: No Status: Chronic (5) Cardiomyopathy Current Visit: No Status: Chronic Qualifiers: Cardiomyopathy type: unspecified Qualified Code(s): I42.9 - Cardiomyopathy , unspecified (6) DVT prophylaxis Current Visit: Yes Status: Acute Assessment and plan: Lovenox subcutaneous - Subjective Interval history: Patient seen and examined at bedside. Resting in bed and in no distress. Denies any chest pain or discomfort at this time. Reported to have history of CAD and NSTEMI with persistent refusal of treatment. SNF placement was recommended by PT, initially patient refused however agreeable at this time. Will get PT evaluation again and get social work consultation. Palliative care consultation appreciated. Patient's CODE STATUS changed to DNR arrest. Discharge pending placement - Constitutional Vitals: Temp Pulse Resp BP Pulse Ox 98.4 F 63 16 150/68 95 05/05/16 10:53 05/05/16 10:53 05/05/16 10:53 05/05/16 10:53 05/05/16 10:53 General appearance: Present: A&O X 3 (frail), pleasant, no acute distress, answers questions appropriately - Head Head exam: Present: atraumatic, normocephalic - Eye Eye exam: Present: normal appearance, conjuntiva pink, sclera anicteric - Respiratory Respiratory exam: Present: CTAB. Absent: accessory muscle use, rales, rhonchi, wheezes - Cardiovascular Cardiovascular exam: Present: RRR, +S1, +S2. Absent: diastolic murmur, gallop, rubs, systolic murmur - GI/Abdominal GI/Abdominal exam: Present: normal bowel sounds, soft, no peritoneal signs. Absent: distended, tenderness - Extremities Exam Extremities exam: Present: warm, radial pulses palpable and symetrical. Absent : pedal edema - Neurological Exam Neurological exam: Present: alert, oriented X3 Internal Medicine: Result - Labs CBC & Chem 7: 05/04/16 08:38 05/04/16 08:38 - VTE Reasons for not Prescribing Prophylaxis: Not indicated-Anticoagulated or INR therapeutic Consult Discharge Plan - Plan Referrals: Ana Oliveros MD [Primary Care Provider] -
[2016-05-05] MEDS: Mirtazapine 15 MG TABLET PO SCH (20:16)
[2016-05-06 04:37] LABS: Basophils % 0.5 %; Eosinophils # 0.1 K/mcL (0.0-0.6); Eosinophils % 2.1 %; Hematocrit 31.5 % (35.3-44.9); Hemoglobin 10.8 g/dL (11.5-15.4); Immature Granulocytes % 0.3 % (0-4); Lymphocytes # 0.8 K/mcL (0.6-4.6); Lymphocytes % 21.3 %; Mean Corpuscular HGB Conc 34.3 g/dL (31.6-35.5); Mean Corpuscular Hemoglobin 32.7 pg (28.0-33.3); Mean Corpuscular Volume 95.5 fL (83.0-100.0); Mean Platelet Volume 10.3 fL (9.4-12.4); Monocytes # 0.4 K/mcL (0.0-1.3); Monocytes % 9.5 %; Neutrophils # 2.6 K/mcL (1.6-8.9); Platelet Count 152 K/mcL (140-400); Red Cell Distribution Width 12.2 % (11.5-14.5); Segmented Neutrophils % 66.3 %
[2016-05-06 05:00] LABS: BUN/Creatinine Ratio 16 (6-26); Blood Urea Nitrogen 13 mg/dL (7-20); Calcium 8.8 mg/dL (8.6-10.8); Carbon Dioxide 24 mEq/L (19-29); Chloride 105 mEq/L (98-109); Glucose 93 mg/dL (70-99); Magnesium 1.7 mg/dL (1.6-2.6); Osmolality,Calculated 282 (280-300); Phosphorous 2.9 mg/dL (2.3-4.7); Potassium 3.8 mEq/L (3.5-4.5); Sodium 136 mEq/L (136-145); eGFR For African Americans > 60 (> 60); eGFR For Non-African Americans > 60 (> 60)
[2016-05-06] MEDS ORDERED: *HR* Enoxaparin 30 MG/0.3 ML SYRINGE SQ SCH (06:00)
[2016-05-06] MEDS: amLODIPine 5 MG TABLET PO SCH (08:46)
[2016-05-06] MEDS: Isosorbide MONOnitrate (24 HR) 30 MG TAB.ER.24H PO SCH (08:46)
[2016-05-06] MEDS: Valsartan 160 MG TABLET PO SCH (08:46)
[2016-05-06] MEDS: Aspirin Enteric Coated 81 MG Tablet PO SCH (08:46)
--- NOTE | 2016-05-06 11:30 | Event Note ---
Date of Encounter: 05/06/16 Time of Encounter: 11:00 Patient awake and alert. No family present. Denies any complaints. D/W [employer] Luiza Bynum pt desires to d/c to [facility] for rehab when arranged. Palliative will follow from a distance.
--- NOTE | 2016-05-06 18:11 | Internal Med Progress Note ---
Date of Encounter: 05/06/16 Time of Encounter: 18:09 - Assessment and plan (1) NSTEMI (non-ST elevated myocardial infarction) Current Visit: Yes Status: Acute Assessment and plan: CAD diagnosed in 09/2015 EF: 40-45% with inferior, inferoseptal, and inferolateral wall motion abnormalities admitted s/p fall, noted to have elevated TNI continues to refuse LHC, denies any chest pain Continue medical therapy-ASA, Statin, BB, Imdur, ARB Discontinued therapeutic dose of Lovenox 05/06/2016 this is my first encounter with patient chart reviewed. patient keen to get cardio work up but refuses Invasive tests. will get ECHO if ECHO is WNL then we will transfer her back to ECF (2) CAD (coronary artery disease) Current Visit: Yes Status: Chronic Assessment and plan: stable CAD no chest pain Qualifiers: Coronary Disease-Associated Artery/Lesion type: unspecified vessel or lesion type [place] vs. transplanted heart: [place] heart Associated angina: angina presence unspecified Qualified Code(s): I25.10 - Atherosclerotic heart disease of [place] coronary artery without angina pectoris (3) Hypertension Current Visit: Yes Status: Chronic Assessment and plan: BP within acceptable range continue home medications Qualifiers: Hypertension type: essential hypertension Qualified Code(s): I10 - Essential (primary) hypertension (4) DVT prophylaxis Current Visit: Yes Status: Acute Assessment and plan: Lovenox subcutaneous - Subjective Interval history: seen and examined. this is my first encounter with patient chart reviewed. patient keen to get cardio work up will get ECHO if ECHO is WNL then we will transfer her back to ECF - Constitutional Vitals: Temp Pulse Resp BP Pulse Ox 98 F 62 16 121/64 94 L 05/06/16 15:46 05/06/16 15:46 05/06/16 15:46 05/06/16 15:46 05/06/16 15:46 General appearance: Present: A&O X 3 (frail), pleasant, no acute distress, answers questions appropriately - Head Head exam: Present: atraumatic, normocephalic - Eye Eye exam: Present: PERRL, conjuntiva pink, sclera anicteric Pupils: Present: PERRL - Neck Neck exam general surgery: Present: supple, trachea midline. Absent: lymphadenopathy - Respiratory Respiratory exam: Present: CTAB. Absent: accessory muscle use, rales, rhonchi, wheezes - Cardiovascular Cardiovascular exam: Present: RRR, +S1, +S2. Absent: diastolic murmur, gallop, rubs, systolic murmur - GI/Abdominal GI/Abdominal exam: Present: normal bowel sounds, soft, no peritoneal signs. Absent: distended, tenderness - Extremities Exam Extremities exam: Present: warm, radial pulses palpable and symetrical. Absent : calf tenderness, cyanotic, pedal edema - Neurological Exam Neurological exam: Present: CN II-XII intact, oriented X3, no focal deficits. Absent: pronater drift, facial droop, speech deficit - Skin Skin exam: Present: dry, intact Internal Medicine: Result - Labs CBC & Chem 7: 05/06/16 03:51 05/06/16 03:51 Labs: Short CBC 05/06/16 Range/Units 03:51 WBC 3.9 L (4.3-11.1) K/mcL Hgb 10.8 L (11.5-15.4) g/dL Hct 31.5 L (35.3-44.9) % Plt Count 152 (140-400) K/mcL Neutrophils # 2.6 (1.6-8.9) K/mcL BMP 05/06/16 03:51 Sodium 136 Potassium 3.8 Chloride 105 Carbon Dioxide 24 BUN 13 Creatinine 0.83 Glucose 93 Calcium 8.8 - VTE Reasons for not Prescribing Prophylaxis: Not indicated-Anticoagulated or INR therapeutic Consult Discharge Plan - Plan Referrals: Ana Oliveros MD [Primary Care Provider] -
[2016-05-06] MEDS: Mirtazapine 15 MG TABLET PO SCH (22:46)
[2016-05-07 04:16] LABS: Basophils % 0.5 %; Eosinophils # 0.1 K/mcL (0.0-0.6); Eosinophils % 3.2 %; Immature Granulocytes % 0.5 % (0-4); Lymphocytes # 0.8 K/mcL (0.6-4.6); Lymphocytes % 19.8 %; Mean Corpuscular HGB Conc 34.4 g/dL (31.6-35.5); Mean Corpuscular Hemoglobin 32.4 pg (28.0-33.3); Mean Corpuscular Volume 94.4 fL (83.0-100.0); Mean Platelet Volume 9.6 fL (9.4-12.4); Monocytes # 0.3 K/mcL (0.0-1.3); Monocytes % 6.6 %; Neutrophils # 2.6 K/mcL (1.6-8.9); Platelet Count 180 K/mcL (140-400); Red Blood Count 3.39 M/mcL (3.82-4.97); Red Cell Distribution Width 12.1 % (11.5-14.5); Segmented Neutrophils % 69.4 %
[2016-05-07 04:40] LABS: Alanine Aminotransferase 19 Units/L (0-55); Albumin/Globulin Ratio 0.7 (1.1-2.2); Alkaline Phosphatase 73 Units/L (38-126); Aspartate Amino Transferase 29 Units/L (5-34); BUN/Creatinine Ratio 14 (6-26); Bilirubin,Total 0.5 mg/dL (0.2-1.2); Blood Urea Nitrogen 12 mg/dL (7-20); Calcium 8.8 mg/dL (8.6-10.8); Carbon Dioxide 24 mEq/L (19-29); Chloride 103 mEq/L (98-109); Globulin 4.6 g/dL (2.4-3.5); Glucose 97 mg/dL (70-99); Osmolality,Calculated 282 (280-300); Potassium 3.7 mEq/L (3.5-4.5); Sodium 136 mEq/L (136-145); Total Protein 7.6 g/dL (6.0-8.3); eGFR For African Americans > 60 (> 60); eGFR For Non-African Americans > 60 (> 60)
[2016-05-07] MEDS ORDERED: *HR* Enoxaparin 40 MG/0.4 ML SYRINGE SQ SCH (06:00)
[2016-05-07] MEDS: amLODIPine 5 MG TABLET PO SCH (07:52)
[2016-05-07] MEDS: Valsartan 160 MG TABLET PO SCH (07:53)
[2016-05-07] MEDS: Aspirin Enteric Coated 81 MG Tablet PO SCH (07:53)
[2016-05-07] MEDS: Isosorbide MONOnitrate (24 HR) 30 MG TAB.ER.24H PO SCH (07:53)
--- NOTE | 2016-05-07 09:20 | ECHO - Doppler Report ---
Echocardiogram Name: Esmer Friedman Date of Study: 05/06/2016 Date: 1935 Ht: 63.0 in Medical Record#: [id number] Age: 81 Wt: 139.0 lb Gender: Female BSA: 1.66 Order #: [id number] Location: [facility] Room #: 3B12 Reading Physician: Michael Chaudhry MD, [facility] Dye Room Helper: Tamar Soto Ordering Physician: Johnnie Evans MD Primary Physician: Ana Oliveros MD Indications: NSTEMI Impressions: Mild LV systolic dysfunction, LVEF 45%. There are regional wall motion abnormalities, see diagram below. Mild asymmetric LV basal septal hypertrophy. No evidence of LVOT obstruction. Mild left ventricular diastolic dysfunction. Normal right ventricular size and function. Mild aortic regurgitation. Unable to estimate RVSP due to lack of TR jet. Left Ventricular Wall Motion: Rest Echo Findings The apical inferior, mid inferior, basal inferior, mid inferior septal, basal inferior septal, mid inferior lateral and basal inferior lateral [place] were hypokinetic. All other wall segments showed normal motion. Findings: Study Quality * Suboptimal echo windows. ECG Findings * Normal sinus rhythm. Left Ventricle * Mild LV systolic dysfunction, LVEF 45%. There are regional wall motion abnormalities, see diagram below. * Mild asymmetric LV basal septal hypertrophy. No evidence of LVOT obstruction. * Mild left ventricular diastolic dysfunction. Right Ventricle * Normal right ventricular size and function. Left Atrium * Normal left atrial size. Right Atrium * Normal right atrial size. Aorta * Normally sized aortic root. Pericardium * There is no pericardial effusion present. IVC * The IVC is not dilated. Aortic Valve * Aortic valve not well visualized. * No aortic stenosis. * Mild aortic regurgitation. Mitral Valve * Mild mitral annular calcification * No mitral stenosis. * Trace mitral regurgitation. Tricuspid Valve * Normal tricuspid valve structure. * No tricuspid stenosis. * Trace tricuspid regurgitation. * Unable to estimate RVSP due to lack of TR jet. Pulmonic Valve * Pulmonic valve not well visualized. * No pulmonic stenosis. * Trace pulmonic regurgitation. History Hypertension Hypercholesteremia History of CAD/PTCA Myocardial Infarction 12/03/2015 a Previous Echo was performed. Measurements: BP: 122/ 73 2D Normal Values RVIDd: 2.70 cm IVSd: 1.30 cm 0.6 - 1.0 cm LVIDd: 4.50 cm 3.7 - 5.6 cm LVPWd: 1.00 cm 0.6 - 1.1 cm LVIDs: 3.20 cm 1.5 - 3.6 cm AO: 2.80 cm < 4.0 cm %FS: 28.90 cm >25 % LA volume: 34 Mitral Valve Peak E:.72 m/sec Peak A:1.21 m/sec E/A Ratio:0.6 Updated by Michael Chaudhry MD, [facility] on 05/07/2016 9:16:18 AM electronically signed on 05/07/2016 9:16:41 AM with status of Final Wall Motion [place]: 1=Normal, 2=Hypokinesis, 3=Akinesis, 4=Dyskinesis, 5=Aneurysmal, 6=Hyperkinetic, X=Not Visualized (Blank)=Missing
[2016-05-07 11:51] VITALS: BP 144/68
--- NOTE | 2016-05-07 12:31 | Discharge Summary ---
Date of Encounter: 05/07/16 Time of Encounter: 12:29 - Discharge Diagnosis (1) NSTEMI (non-ST elevated myocardial infarction) Priority: Primary Status: Acute (2) Chronic pain Priority: Secondary Status: Chronic Qualifiers: Chronic pain type: other chronic pain Qualified Code(s): G89.29 - Other chronic pain (3) Hip pain, right Priority: Secondary Status: Chronic (4) Hypertension Priority: Secondary Status: Chronic Qualifiers: Hypertension type: essential hypertension Qualified Code(s): I10 - Essential (primary) hypertension - Discharge Medications Home Medications: Lactose-Reduced Food [Boost Breeze] 237 ml PO BID 10/24/15 [History] Nitroglycerin 0.4 mg SL Q5MIN PRN #0 tab.subl 10/25/15 [Rx] Atorvastatin [Lipitor] 10 mg PO HS 12/03/15 [History] Isosorbide MONOnitrate (24 HR) [Imdur] 30 mg PO DAILY #30 tab.er.24h 12/05/15 [ Rx] Amlodipine Bes/Olmesartan Med [Cuate 10-40 mg Tablet] 1 each PO DAILY 05/02/16 [ History] Aspirin Enteric Coated [Aspirin EC] 81 mg PO DAILY 05/02/16 [History] Carvedilol 12.5 mg PO BID 05/02/16 [History] Mirtazapine [Remeron] 15 mg PO HS 05/02/16 [History] Oxycodone HCl/Acetaminophen [Percocet 10-325 mg Tablet] 1 each PO BID PRN #20 05/07/16 [Rx] Allergies/Adverse Reactions: Allergies No Known Allergies Allergy (Verified 12/17/14 19:28) Procedures/tests Complete & Pending: Procedures Performed prior 72 hours Category Date Time Status EV echocardiogram Routine Y 05/06/16 08:26 Completed Date of admission: 05/03/16 06:04 Primary care physician: Ana Oliveros MD Consults: 05/03/16 11:13 Consult to Occupational Therapy [CONS] Routine Comment: Evaluate, develop and implement POC 05/04/16 08:06 Consult to Palliative Care [CONS] Stat Comment: Consulting Provider: Palliative Care [place] Discharging clinician: Aide Ceron Anticipated date of discharge: 05/07/16 - Patient Status Disposition: Transfer SNF Condition: Fair Functional capacity at discharge: uses cane/walker Overall status at discharge: patient is progressing back to baseline - Discharge Instructions Follow Up With: Ana Oliveros MD [Primary Care Provider] - - Diet and Activity Activity: as per physical therapy Diet: low fat, low cholesterol, low salt diet Hospital course: Ms. Friedman is a 81 year old female with the above medical problems, admitted with retrosternal chest pain. She was noted to have ischemic changes on EKG along with elevated troponin and was started on therapeutic anticoagulation along with aspirin, beta garth and statin for possible non-ST elevation IN. Cardiology was consulted and recommended left heart catheterization for possible ischemic heart disease. However, after multiple discussions, continued to refuse invasive intervention and so medical management has been recommended. Palliative care team has been consulted and code status has been changed to DNR comfort care arrest. Echocardiogram was done which showed ejection fraction of 45%, mild left ventricular diastolic dysfunction and mild atrial regurgitation, and these findings are consistent with her previous imaging studies. She is noted to be unsafe to be discharged home and would benefit from short- term rehabilitation. Patient is currently medically stable for discharge to [facility] facility. - Time Spent with Patient Total time spent providing and/or coordinating discharge services: Greater than 30 minutes (50 min) - Constitutional Vitals: Temp Pulse Resp BP Pulse Ox 97.9 F 61 16 144/68 93 L 05/07/16 11:50 05/07/16 11:50 05/07/16 11:50 05/07/16 11:50 05/07/16 11:50 General appearance: Present: A&O X 3, answers questions appropriately - Respiratory Respiratory exam: Present: CTAB. Absent: accessory muscle use, rales, rhonchi, wheezes - Cardiovascular Cardiovascular exam: Present: RRR, +S1, +S2. Absent: diastolic murmur, gallop, rubs, systolic murmur - VTE Reasons for not Prescribing Prophylaxis: Not indicated-Anticoagulated or INR therapeutic
--- NOTE | 2016-05-07 12:33 | Physician Discharge Referral ---
ExtendedCare Referral Info Transfer To: [facility] Provider in Charge: Aide Ceron Provider in Charge after Transfer: PCP Institutional Level of Care: Skilled - Diagnosis (1) NSTEMI (non-ST elevated myocardial infarction) Priority: Primary Status: Acute (2) Chronic pain Priority: Secondary Status: Chronic (3) Hip pain, right Priority: Secondary Status: Chronic (4) Hypertension Priority: Secondary Status: Chronic Expected Duration of Placement: 3 weeks Prognosis: Fair Aware of Diagnosis: Patient Aware of Prognosis: Patient - Transfer Medications Home Medications: Lactose-Reduced Food [Boost Breeze] 237 ml PO BID 10/24/15 [History] Nitroglycerin 0.4 mg SL Q5MIN PRN #0 tab.subl 10/25/15 [Rx] Atorvastatin [Lipitor] 10 mg PO HS 12/03/15 [History] Isosorbide MONOnitrate (24 HR) [Imdur] 30 mg PO DAILY #30 tab.er.24h 12/05/15 [ Rx] Amlodipine Bes/Olmesartan Med [Cuate 10-40 mg Tablet] 1 each PO DAILY 05/02/16 [ History] Aspirin Enteric Coated [Aspirin EC] 81 mg PO DAILY 05/02/16 [History] Carvedilol 12.5 mg PO BID 05/02/16 [History] Mirtazapine [Remeron] 15 mg PO HS 05/02/16 [History] Oxycodone HCl/Acetaminophen [Percocet 10-325 mg Tablet] 1 each PO BID PRN #20 05/07/16 [Rx] Allergies/Adverse Reactions: Allergies No Known Allergies Allergy (Verified 12/17/14 19:28) - Respiratory Orders Smoking Cessation: Smoking cessation has been advised. For more information, call the [place] Tobacco Quit Line at 7-348-XWRJ-NOW. - Advance Directives Code Status: DNR-Arrest - Mobility Orders Ambulate - Rehabiliation Orders Rehab Potential: Fair Rehab Orders: ROM Exercises, Evaluation for Physical Therapy, Evaluation for Occupational Therapy - Diet Orders Cardiac CERTIFICATION: I certify that the transfer of the above named patient to an Extended Care Facility is necessary for the continuing treatment of the diagnosis listed. The above information is true and accurate reflection of patient's current condition. Confidential - Redisclosure prohibited without a patient's written consent.
== END 2016-05-07 14:17 | DRG 281 ==
LOC: EMEROO 11:31 → 3BNU 11:31 → SUATTDRO 05-03 06:04
PROVIDERS: ADMIT Internal Medicine; ATTEND Internal Medicine

== ENCOUNTER 2017-10-17 12:31 | Inpatient (IN) ==
[2017-10-17 14:11] LABS: Basophils % 0.2 %; Eosinophils % 0.4 %; Hematocrit 35.5 % (35.3-44.9); Hemoglobin 13.1 g/dL (11.5-15.4); Immature Granulocytes % 0.4 % (0-4); Immature Platelets 5.3 % (1.1-6.1); Lymphocytes # 0.9 K/mcL (0.6-4.6); Lymphocytes % 15.9 %; Mean Corpuscular Hemoglobin 32.3 pg (28.0-33.3); Mean Corpuscular Volume 87.4 fL (83.0-100.0); Mean Platelet Volume 10.3 fL (9.4-12.4); Monocytes # 0.3 K/mcL (0.0-1.3); Monocytes % 5.8 %; Neutrophils # 4.3 K/mcL (1.6-8.9); Platelet Count 152 K/mcL (140-400); Red Blood Count 4.06 M/mcL (3.82-4.97); Red Cell Distribution Width 12.7 % (11.5-14.5); Segmented Neutrophils % 77.3 %
[2017-10-17 14:12] LABS: Mean Corpuscular HGB Conc 36.9 g/dL (31.6-35.5)
[2017-10-17 14:29] LABS: Bilirubin,Urine Negative (Negative); Blood,Urine Negative (Negative); Clarity,Urine Clear (Clear); Color,Urine Yellow (Yellow); Glucose,Urine (UA) Normal (Normal); Ketones,Urine Negative (Negative); Leukocyte Esterase,Urine Negative (Negative); Nitrite,Urine Negative (Negative); Protein,Urine Negative (Neg-Trace); Specific Gravity,Urine 1.016 (1.010-1.025); Urobilinogen,Urine Normal (Normal)
[2017-10-17 15:06] LABS: Alanine Aminotransferase 13 Units/L (7-52); Albumin 4.3 g/dL (3.5-5.7); Albumin/Globulin Ratio 1.3 (1.1-2.2); Alkaline Phosphatase 50 Units/L (34-104); Aspartate Amino Transferase 25 Units/L (13-39); BUN/Creatinine Ratio 14 (6-26); Bilirubin,Total 1.2 mg/dL (0.3-1.0); Blood Urea Nitrogen 12 mg/dL (8-23); Calcium 9.3 mg/dL (8.6-10.3); Carbon Dioxide 23 mEq/L (23-29); Chloride 85 mEq/L (98-107); Globulin 3.2 g/dL (2.4-3.5); Glucose 150 mg/dL (70-105); Osmolality,Calculated 247 (280-300); Potassium 3.9 mEq/L (3.5-5.1); Sodium 117 mEq/L (136-145); Total Protein 7.5 g/dL (6.4-8.9); Troponin I < 0.03 ng/mL (< 0.04); eGFR For Non-African Americans > 60 (> 60)
--- NOTE | 2017-10-17 15:25 | Emergency Department Note ---
Disposition Clinical Impression: Hyponatremia Disposition: Admitted As Inpatient Condition: Good General Adult HPI - General Chief complaint: ED General Medical Stated complaint: general Time Seen by Provider: 10/17/17 12:39 Source: patient, EMS Limitations: no limitations Nursing Notes Reviewed: Yes Vital Signs Reviewed: Yes - History of Present Illness HPI Narrative: Patient presents to the emergency department for vague symptoms including generalized weakness malice chills. She states that she has had the symptoms for the last several days. Patient states that she has not had cough or fevers or burning with urination. She does not complain of abdominal pain but does complain of mild nausea. No vomiting. Patient will undergo further evaluation for possible cardiac, infectious etiologies. Pain Scale: 0 - Related Data Home Medications Medication Instructions Recorded Confirmed Lactose-Reduced Food [Boost Breeze] 10 ml PO BID 10/24/15 02/25/17 Aspirin Enteric Coated [Aspirin EC] 81 mg PO DAILY 05/02/16 02/25/17 Mirtazapine [Remeron] 15 mg PO HS 05/02/16 02/25/17 Buspirone HCl [Buspar] 10 mg PO BID 02/25/17 02/25/17 Previous Rx's Medication Instructions Recorded Nitroglycerin 0.4 mg SL Q5MIN PRN #0 tab.subl 10/25/15 Ondansetron ODT [Zofran ODT] 4 mg SL Q6HR #10 tab.rapdis 05/31/16 LORazepam Oral Conc [Ativan Oral 1 mg PO Q6HR PRN #30 mls 02/28/17 Conc] LORazepam [Ativan] 1 mg IV Q2H PRN #30 mg 02/28/17 Morphine Oral CONC [Roxanol] 0.25 ml PO Q4H PRN #30 ml 02/28/17 Atorvastatin [Lipitor] 80 mg PO HS #30 tablet 03/01/17 Clopidogrel [Plavix] 75 mg PO DAILY #30 tablet 03/01/17 amLODIPine [Norvasc] 10 mg PO DAILY #30 tablet 03/01/17 Allergies Allergy/AdvReac Type Severity Reaction Status Date / Time tramadol Allergy Rash Verified 10/17/17 12:47 Review of Systems: As Per HPI Constitutional: Reports: weakness, other (Generalized malaise). Denies: fever, chills Cardiovascular: Denies: chest pain, palpitations Respiratory: Denies: cough, dyspnea Gastrointestinal: Reports: nausea. Denies: abdominal pain Genitourinary: Denies: urgency, dysuria Neurological: Reports: weakness (generalized). Denies: headache Past Medical History - Past Medical History Medical history: Reports: arthritis, cardiomyopathy, coronary artery disease, CVA, hyperlipidemia, hypertension, myocardial infarction, other Surgical history: Reports: hysterectomy Psychiatric history: Reports: no psych history PHLEBOTOMY TECHNOLOGIST history: Reports: non-contributory - Social History Smoking Status: Never smoker Smokeless Tobacco Status: No Alcohol use: Reports: none Drug use: Reports: none Physical Exam General: Well appearing, nontoxic, no acute distress Head: Normocephalic Atraumatic Eyes: PERRL, EOMI ENT: Airway patent, no stridor Neck: supple Chest: Lungs clear to auscultation bilateral Cardiac: Regular rhythm. Abdomen: soft, nontender, nondistended; no guarding, rebound, or tenderness to percussion Skin: No rash, normal skin tone Neuro: Alert and Oriented to person, place, but not time. No focal deficit. - General Limitations: altered mental status General appearance: alert Course - Reevaluation(s) Reevaluation #1: Patient with hyponatremia. Patient states that she has been drinking lots of water because she has been thirsty however no other etiology for hyponatremia at this point. Urine electrolytes sent. Urine osmole sent. Patient placed on fluid restriction. Discussed with hospitalist. Awaiting nephrology callback. - Consultations Consultation #1: Discussed with nephrology. Patient can receive 500 mL bolus as well as 50 mL an hour of normal saline. Continue to monitor sodium on a regular basis. Repeat basic metabolic panel has been ordered in the emergency department for one hour after infusion. Vital Signs Temperature 98.4 F 10/17/17 12:49 Pulse Rate 74 10/17/17 12:49 Respiratory Rate 20 10/17/17 12:49 Blood Pressure 155/77 10/17/17 12:49 O2 Sat by Pulse Oximetry 97 10/17/17 12:49 Temperature 98.4 F 10/17/17 12:49 Pulse Rate 74 10/17/17 14:00 Respiratory Rate 20 10/17/17 14:00 Blood Pressure 175/89 10/17/17 14:00 O2 Sat by Pulse Oximetry 98 10/17/17 14:00 Oxygen Delivery Oxygen Delivery Room Air Medical Decision Making - Medical Records Medical records reviewed: Yes I reviewed the patient's medical records. - Lab Data Lab results reviewed: Yes I reviewed the patient's lab results. Result diagrams: 10/17/17 12:59 10/17/17 12:59 Lab Results 10/17/17 10/17/17 10/17/17 Range/Units 12:59 12:59 14:11 WBC 5.6 (4.3-11.1) K/mcL RBC 4.06 (3.82-4.97) M/mcL Hgb 13.1 (11.5-15.4) g/dL Hct 35.5 (35.3-44.9) % MCV 87.4 (83.0-100.0) fL MCH 32.3 (28.0-33.3) pg MCHC 36.9 H (31.6-35.5) g/dL RDW 12.7 (11.5-14.5) % Plt Count 152 (140-400) K/mcL MPV 10.3 (9.4-12.4) fL Immature Gran % 0.4 (0-4) % Seg Neutrophils % 77.3 % Lymphocytes % 15.9 % Monocytes % 5.8 % Eosinophils % 0.4 % Basophils % 0.2 % Neutrophils # 4.3 (1.6-8.9) K/mcL Lymphocytes # 0.9 (0.6-4.6) K/mcL Monocytes # 0.3 (0.0-1.3) K/mcL Eosinophils # 0.0 (0.0-0.6) K/mcL Basophils # 0.0 (0.0-0.2) K/mcL Immature Plt Fraction 5.3 (1.1-6.1) % Sodium 117 L* (136-145) mEq/L Potassium 3.9 (3.5-5.1) mEq/L Chloride 85 L (98-107) mEq/L Carbon Dioxide 23 (23-29) mEq/L BUN 12 (8-23) mg/dL Creatinine 0.86 (0.60-1.20) mg/dL Est GFR ( Amer) > 60 (> 60) Est GFR (Non-Af Amer) > 60 (> 60) BUN/Creatinine Ratio 14 (6-26) Glucose 150 H (70-105) mg/dL Calculated Osmolality 247 L (280-300) Calcium 9.3 (8.6-10.3) mg/dL Total Bilirubin 1.2 H (0.3-1.0) mg/dL AST 25 (13-39) Units/L ALT 13 (7-52) Units/L Alkaline Phosphatase 50 (34-104) Units/L Troponin I < 0.03 (< 0.04) ng/mL Serum Total Protein 7.5 (6.4-8.9) g/dL Albumin 4.3 (3.5-5.7) g/dL Globulin 3.2 (2.4-3.5) g/dL Albumin/Globulin Ratio 1.3 (1.1-2.2) Urine Color Yellow (Yellow) Urine Clarity Clear (Clear) Urine pH 6.0 (5.0-8.0) pH Units Ur Specific [place] 1.016 (1.010-1.025) Urine Protein Negative (Neg-Trace) mg/dL Urine Glucose (UA) Normal (Normal) mg/dL Urine Ketones Negative (Negative) mg/dL Urine Blood Negative (Negative) Urine Nitrite Negative (Negative) Urine Bilirubin Negative (Negative) Urine Urobilinogen Normal (Normal) mg/dL Ur Leukocyte Esterase Negative (Negative) Ur Culture Indicated? NO (NO) - Radiology Data Radiology results reviewed: Yes I reviewed the patient's radiology results. - EKG Data EKG #1 EKG attestation: Yes I reviewed and interpreted this EKG. EKG results narrative: EKG shows sinus rhythm with a heart rate of 65. IN interval 199.u RS 102. QTC 404. No significant ST elevation or depression.
[2017-10-17] MEDS ORDERED: 0.9 % Sodium Chloride 500 ML IVC ONE (15:31)
--- NOTE | 2017-10-17 15:48 | Nephrology Consult Note ---
Date of Encounter: 10/17/17 Time of Encounter: 15:46 Assessment and Plan (1) Hyponatremia Current Visit: Yes Status: Acute The patient has a history of hyponatremia to goes back to 2016. This seems to be a very low-level hyponatremia in the mid to low 130s. She presents with a worsening hyponatremia with a serum sodium of 117. Her symptoms are likely viral versus dehydration and I suspected her hyponatremia as a result of nausea and the release of ADH along with free water and hypotonic fluid intake. I think she will respond to saline. I recommend starting with gentle saline with frequent monitoring of her serum sodium levels to ensure that her sodium does not decrease. Recommend that her serum sodium not rise above 125 until tomorrow. I will obtain a serum and urine osmolality along with a TSH and random cortisol. (2) Altered mental status, unspecified Current Visit: No Status: Acute General defer to the primary team. Baseline is unknown at this time. Qualifiers: Altered mental status type: transient alteration of awareness Qualified Code(s): R40.4 - Transient alteration of awareness (3) Hypertension Current Visit: Yes Status: Acute Continue home medication and titrate antihypertensive medication as needed. Qualifiers: Qualified Code(s): I10 - Essential (primary) hypertension History of Present Illness - Reason for Consult Consult date: 10/17/17 hyponatremia - Chief Complaint hyponatremia - History of Present Illness Mrs. Friedman is an 82-year-old woman with a history of hyponatremia who presents to the emergency room not feeling well. History is obtained mostly from the electronic medical records and speaking with the ER physician as the patient is not a great historian. She was able to tell me she has not been feeling well for the last few "days". She denies vomiting or diarrhea, but states she has had nausea and decreased oral intake. She has mostly been taking in liquids. She denies chest pain, shortness of breath, or leg swelling. Nephrology was consulted to assist with management of her hyponatremia. Past Med Surg Social Fam HX - Past Medical History Medical history: arthritis, cardiomyopathy, coronary artery disease, CVA, hyperlipidemia, hypertension, myocardial infarction, other Additional medical history: Posturnal dizzyness presyncope. hypokalemia. hyponatremia. NSTEMI. thrombocytopenia Psychiatric history: no psych history - Past Surgical History Surgical History: hysterectomy - Social History Smoking Status: Never smoker Smokeless Tobacco Status: No Alcohol use: none Drug use: none - Family History Mother Living Status: Hx Family Cardiac Disorders: Yes Medications and Allergies Lactose-Reduced Food [Boost Breeze] 10 ml PO BID 10/24/15 [History] Nitroglycerin 0.4 mg SL Q5MIN PRN #0 tab.subl 10/25/15 [Rx] Aspirin Enteric Coated [Aspirin EC] 81 mg PO DAILY 05/02/16 [History] Mirtazapine [Remeron] 15 mg PO HS 05/02/16 [History] Clopidogrel [Plavix] 75 mg PO DAILY #30 tablet 03/01/17 [Rx] Amlodipine Bes/Olmesartan Med [Cuate 10-40 mg Tablet] 1 tab PO DAILY 10/17/17 [ History] Atorvastatin [Lipitor] 10 mg PO HS 10/17/17 [History] Carvedilol 12.5 mg PO BID 10/17/17 [History] DULoxetine [Cymbalta] 30 mg PO DAILY 10/17/17 [History] 3 Allergy/AdvReac Type Severity Reaction Status Date / Time tramadol Allergy Rash Verified 10/17/17 12:47 Review of Systems All Systems: reviewed and no additional remarkable complaints except as stated ( As documented in history of present illness) Exam - Vital Signs Vital signs: Initial Vital Signs Temp Pulse Resp BP Pulse Ox 98.4 F 74 20 155/77 97 10/17/17 12:49 10/17/17 12:49 10/17/17 12:49 10/17/17 12:49 10/17/17 12:49 - General Appearance General appearance: well-developed, well-nourished, obese, frail EENT: ATNC Neck: supple Respiratory: clear, course breath sounds Cardiology: no edema, regular rate, regular rhythm Gastrointestinal: normoactive bowel sounds, no tenderness, obese Integumentary: warm and dry Neurologic: alert and oriented x3 Musculoskeletal: no cyanosis Psychiatric: mood/affect appropriate Results - Lab Results 10/17/17 12:59 10/17/17 12:59 Most recent lab results Calcium 9.3 mg/dL (8.6-10.3) 10/17/17 12:59 Consult Discharge Plan - Plan Referrals: Ana Oliveros MD [Primary Care Provider] -
[2017-10-17] MEDS ORDERED: Naloxone 0.4 MG/ML INJ IVP PRN (17:00)
[2017-10-17 17:17] LABS: BUN/Creatinine Ratio 14 (6-26); Blood Urea Nitrogen 11 mg/dL (8-23); Calcium 8.9 mg/dL (8.6-10.3); Carbon Dioxide 22 mEq/L (23-29); Chloride 90 mEq/L (98-107); Glucose 133 mg/dL (70-105); Osmolality,Calculated 239 (280-300); Potassium 3.8 mEq/L (3.5-5.1); Sodium 114 mEq/L (136-145); eGFR For Non-African Americans > 60 (> 60)
--- NOTE | 2017-10-17 17:19 | Internal Med History&Physical ---
Date of Encounter: 10/17/17 Time of Encounter: 17:16 Internal Medicine - H&P: HPI Chief complaint: Dry oral mucosa, slow response Admitted From: Home History of present illness: Ms. Friedman is a 82 year old female past medical history significant for systolic heart failure last ejection fraction 40%, hypertension, coronary artery disease with prior [place]. Patient brought to the emergency room from home after the home health aide, the patient was seek because she was very slow following commands, also the patient had very dry oral mucosa and poor skin turgor. In the emergency room patient was found to be severely hyponatremic with a sodium 117. Patient denies productive cough fever, nausea, vomiting, diarrhea, but reports increase water intake due to always feeling thirsty, she denies increase in urination. Patient also reports decrease food intake, denied weight loss. Past Med Surg Social Fam HX - Past Medical History Medical history: arthritis, cardiomyopathy, coronary artery disease, CVA, hyperlipidemia, hypertension, myocardial infarction, other Additional medical history: Posturnal dizzyness presyncope. hypokalemia. hyponatremia. NSTEMI. thrombocytopenia Psychiatric history: no psych history - Past Surgical History Surgical History: hysterectomy - Social History Smoking Status: Never smoker Smokeless Tobacco Status: No Alcohol use: none Drug use: none - Family History Mother Living Status: Hx Family Cardiac Disorders: Yes Internal Medicine - H&P: Meds Lactose-Reduced Food [Boost Breeze] 10 ml PO BID 10/24/15 [History] Nitroglycerin 0.4 mg SL Q5MIN PRN #0 tab.subl 10/25/15 [Rx] Aspirin Enteric Coated [Aspirin EC] 81 mg PO DAILY 05/02/16 [History] Mirtazapine [Remeron] 15 mg PO HS 05/02/16 [History] Clopidogrel [Plavix] 75 mg PO DAILY #30 tablet 03/01/17 [Rx] Amlodipine Bes/Olmesartan Med [Cuate 10-40 mg Tablet] 1 tab PO DAILY 10/17/17 [ History] Atorvastatin [Lipitor] 10 mg PO HS 10/17/17 [History] Carvedilol 12.5 mg PO BID 10/17/17 [History] DULoxetine [Cymbalta] 30 mg PO DAILY 10/17/17 [History] 3 Allergy/AdvReac Type Severity Reaction Status Date / Time tramadol Allergy Rash Verified 10/17/17 12:47 All Systems PM: A 10-system review of systems was performed and is negative for pertinent findings except as documented above in the HPI. - Constitutional Constitutional: fatigue, lethargy, weakness, no anorexia, no chills, no excessive sweating, no weight loss - EENT Ears: no decreased hearing Nose, mouth and throat: no bleeding gums, no dental pain - Cardiovascular Cardiovascular ROS IM: no chest pain, no diaphoresis, no dyspnea, no edema, no irregular heart rhythm, no lightheadedness, no orthopnea - Respiratory Respiratory: no cough, no dyspnea, no wheezing, no snoring, no pain with cough - Gastrointestinal Gastrointestinal: no abdominal pain, no belching, no bloating, no coffee ground emesis, no constipation, no dyspepsia, no dysphagia, no early satiety, no excessive flatus, no nausea, no vomiting - Musculoskeletal Musculoskeletal ROS IM: no back pain - Integumentary Integumentary IM: no erythema, no rash, no skin ulcer - Neurological Neurological ROS: weakness, no abnormal gait, no restless legs, no tremor(s) - Psychiatric Psychiatric: no confusion - Endocrine Endocrine IM: no cold intolerance - Constitutional Vitals: Temp Pulse Resp BP Pulse Ox 98.4 F 74 20 139/118 98 10/17/17 12:49 10/17/17 14:00 10/17/17 15:55 10/17/17 15:55 10/17/17 14:00 Exam: General: Alert and oriented to person, time or place. Skin: Dry oral mucosa. HEENT: EOM, pupils equal, round and reactive. Cardiovascular:Normal S1 & S2, no rubs, murmurs or gallops. No JVD. Pulse regular. Lungs: Normal breath sounds, no wheezes or crackles. Abdomen: Soft, non-tender, no rigidity. Extremities: No deformity, no edema or tenderness, no joint swelling or clubbing. Neurological: Mild lethargy. Rest of the physical exam is non contributory Internal Med - H&P Results - Labs CBC & Chem 7: 10/17/17 12:59 10/17/17 12:59 - Assessment and plan (1) Hyponatremia Current Visit: Yes Status: Acute Assessment and plan: Severe hyponatremia, most likely chronic Plan: - Water restriction to 1.5 L a day - Normal saline 50 mL per hour - targeting an increase in Na of 4 to 6 mEq/L in 24 hours - Serum and Urine Osm - Urine electrolytes - TSH - BMP Q4HRs - Broadcast Technician has been consulted (2) Hypertension Current Visit: Yes Status: Acute Assessment and plan: Suboptimally controlled Plan: - Continue home medications - On amlodipine and carvedilol Qualifiers: Qualified Code(s): I10 - Essential (primary) hypertension (3) CAD (coronary artery disease) Current Visit: No Status: Chronic Assessment and plan: Hx of prior [place] Plan: - Will contine dual antiplatelet therapy Qualifiers: Coronary Disease-Associated Artery/Lesion type: [place] artery [place] vs. transplanted heart: [place] heart Associated angina: angina presence unspecified Qualified Code(s): I25.10 - Atherosclerotic heart disease of [place] coronary artery without angina pectoris (4) DVT prophylaxis Current Visit: No Status: Acute Assessment and plan: Moderate risk Plan: - Heparin 5000 units Q12HR SubQ - Time Spent With Patient Total time spent is greater than 50% in coordination of care (as documented) at patient's floor/unit and/or counseling patient: Greater than 35 minutes
[2017-10-17 17:28] LABS: Thyroid Stimulating Hormone 3.824 mcIU/mL (0.340-5.600)
[2017-10-17] MEDS: 0.9 % Sodium Chloride 1,000 ML IVC SCH (17:51)
[2017-10-17 21:14] LABS: Sodium, Urine 48.8 mEq/L
[2017-10-17] MEDS: *HR* Heparin 5,000 UNIT/ML VIAL SQ SCH (21:49)
[2017-10-17] MEDS: Mirtazapine 15 MG TABLET PO SCH (21:49)
[2017-10-17 22:25] LABS: BUN/Creatinine Ratio 15 (6-26); Blood Urea Nitrogen 10 mg/dL (8-23); Calcium 8.6 mg/dL (8.6-10.3); Carbon Dioxide 22 mEq/L (23-29); Chloride 89 mEq/L (98-107); Glucose 117 mg/dL (70-105); Osmolality,Calculated 244 (280-300); Potassium 3.9 mEq/L (3.5-5.1); Sodium 117 mEq/L (136-145); eGFR For Non-African Americans > 60 (> 60)
[2017-10-18 03:49] LABS: BUN/Creatinine Ratio 15 (6-26); Blood Urea Nitrogen 9 mg/dL (8-23); Calcium 8.5 mg/dL (8.6-10.3); Carbon Dioxide 21 mEq/L (23-29); Chloride 89 mEq/L (98-107); Glucose 110 mg/dL (70-105); Osmolality,Calculated 245 (280-300); Potassium 3.2 mEq/L (3.5-5.1); Sodium 118 mEq/L (136-145); eGFR For Non-African Americans > 60 (> 60)
[2017-10-18 05:07] LABS: Basophils % 0.4 %; Eosinophils # 0.1 K/mcL (0.0-0.6); Eosinophils % 1.6 %; Hematocrit 34.9 % (35.3-44.9); Hemoglobin 12.8 g/dL (11.5-15.4); Immature Granulocytes % 0.2 % (0-4); Lymphocytes # 1.2 K/mcL (0.6-4.6); Lymphocytes % 24.6 %; Mean Corpuscular HGB Conc 36.7 g/dL (31.6-35.5); Mean Corpuscular Hemoglobin 32.1 pg (28.0-33.3); Mean Corpuscular Volume 87.5 fL (83.0-100.0); Mean Platelet Volume 10.1 fL (9.4-12.4); Monocytes # 0.5 K/mcL (0.0-1.3); Neutrophils # 3.1 K/mcL (1.6-8.9); Platelet Count 117 K/mcL (140-400); Red Blood Count 3.99 M/mcL (3.82-4.97); Red Cell Distribution Width 12.3 % (11.5-14.5); Segmented Neutrophils % 62.2 %
[2017-10-18 05:29] LABS: BUN/Creatinine Ratio 13 (6-26); Blood Urea Nitrogen 8 mg/dL (8-23); Calcium 8.6 mg/dL (8.6-10.3); Carbon Dioxide 19 mEq/L (23-29); Chloride 90 mEq/L (98-107); Glucose 109 mg/dL (70-105); Magnesium 1.5 mg/dL (1.6-2.6); Osmolality,Calculated 245 (280-300); Phosphorous 2.2 mg/dL (2.7-4.5); Potassium 3.3 mEq/L (3.5-5.1); Sodium 118 mEq/L (136-145); eGFR For Non-African Americans > 60 (> 60)
[2017-10-18] MEDS ORDERED: Potassium Chloride Elixir 20 MEQ/15 ML UDC PO ONE (07:21)
[2017-10-18] MEDS ORDERED: Magnesium Oxide 400 MG TABLET PO ONE (07:22)
[2017-10-18] MEDS: amLODIPine 5 MG TABLET PO SCH (08:01)
[2017-10-18] MEDS: *HR* Heparin 5,000 UNIT/ML VIAL SQ SCH ×2 (08:07→17:27)
[2017-10-18] MEDS: Aspirin 81 MG TAB.CHEW PO SCH (08:07)
[2017-10-18 09:21] LABS: BUN/Creatinine Ratio 10 (6-26); Blood Urea Nitrogen 6 mg/dL (8-23); Calcium 8.7 mg/dL (8.6-10.3); Carbon Dioxide 20 mEq/L (23-29); Chloride 90 mEq/L (98-107); Glucose 157 mg/dL (70-105); Osmolality,Calculated 249 (280-300); Potassium 3.8 mEq/L (3.5-5.1); Sodium 119 mEq/L (136-145); eGFR For Non-African Americans > 60 (> 60)
--- NOTE | 2017-10-18 10:42 | Internal Med Progress Note ---
Hospitalist Progress Note - Encounter Date of Encounter: 10/18/17 Time of Encounter: 10:40 - Subjective Interval History: Patient seen and evaluated at bedside, she reports doing well. As per the daughter who is at bedside the patient has been drinking about 2 gallons of water a day. So the daughter reports that the patient is mentally back to her baseline. The patient denies chest pain, shortness of breath, no sweats, lightheadedness, dizziness, - Exam Vitals: Temp Pulse Resp BP Pulse Ox 97.6 F 71 17 107/80 96 10/18/17 07:59 10/18/17 07:59 10/18/17 07:59 10/18/17 07:59 10/18/17 07:59 Exam: General: Alert and oriented to person, and place. HEENT: EOM, pupils equal, round and reactive. Cardiovascular:Normal S1 & S2, no rubs, murmurs or gallops. No JVD. Pulse regular. Lungs: Normal breath sounds, no wheezes or crackles. Abdomen: Soft, non-tender, no rigidity. Extremities: No deformity, no edema or tenderness, no joint swelling or clubbing. Neurological: exam within normal. Rest of physical exam is non contributory - Assessment and Plan (1) Hyponatremia Current Visit: Yes Status: Acute Assessment and Plan: Severe, Chronic. Possible SIADH Plan: - Water restriction to 1.5 litters a day - NS@50 mls/hr - Will continue follow nephrology recommendations - BMP Q4HRs (2) Hypertension Current Visit: Yes Status: Chronic Assessment and Plan: BP well controlled. Plan: - Continue current home antihypertensive medications (3) CAD (coronary artery disease) Current Visit: No Status: Chronic Assessment and Plan: Plan: _ To continue dual antiplatelets (4) DVT prophylaxis Current Visit: No Status: Acute Assessment and Plan: High risk. Plan: - On heparin 5000 units Q12HR SubQ - Time Spent with Patient Total time spent is greater than 50% in coordination of care (as documented) at patient's floor/unit and/or counseling patient: Greater than 35 minutes Plan of Care Discussed with: family Internal Medicine: Result - Labs CBC & Chem 7: 10/18/17 04:23 10/18/17 08:39 Labs: Short CBC 10/18/17 Range/Units 04:23 WBC 4.9 (4.3-11.1) K/mcL Hgb 12.8 (11.5-15.4) g/dL Hct 34.9 L (35.3-44.9) % Plt Count 117 L (140-400) K/mcL Neutrophils # 3.1 (1.6-8.9) K/mcL BMP 10/17/17 10/17/17 10/18/17 19:30 21:46 00:13 Sodium 118 L* 117 L* 118 L* Potassium 3.9 Chloride 89 L Carbon Dioxide 22 L BUN 10 Creatinine 0.67 Glucose 117 H Calcium 8.6 10/18/17 10/18/17 10/18/17 02:43 04:23 08:39 Sodium 118 L* 118 L* 119 L* Potassium 3.2 L 3.3 L Chloride 89 L 90 L Carbon Dioxide 21 L 19 L BUN 9 8 Creatinine 0.62 0.62 Glucose 110 H 109 H Calcium 8.5 L 8.6 10/18/17 08:39 Sodium 119 L* Potassium 3.8 Chloride 90 L Carbon Dioxide 20 L BUN 6 L Creatinine 0.58 L Glucose 157 H Calcium 8.7 Consult Discharge Plan - Plan Referrals: Ana Oliveros MD [Primary Care Provider] - (2) Hypertension Qualifiers: Qualified Code(s): I10 - Essential (primary) hypertension (3) CAD (coronary artery disease) Qualifiers: Coronary Disease-Associated Artery/Lesion type: [place] artery [place] vs. transplanted heart: [place] heart Associated angina: angina presence unspecified Qualified Code(s): I25.10 - Atherosclerotic heart disease of [place] coronary artery without angina pectoris
[2017-10-18] MEDS: 0.9 % Sodium Chloride 1,000 ML IVC SCH ×2 (11:27→15:47)
[2017-10-18 13:29] LABS: BUN/Creatinine Ratio 9 (6-26); Blood Urea Nitrogen 6 mg/dL (8-23); Calcium 8.3 mg/dL (8.6-10.3); Carbon Dioxide 20 mEq/L (23-29); Chloride 93 mEq/L (98-107); Glucose 129 mg/dL (70-105); Osmolality,Calculated 251 (280-300); Potassium 3.9 mEq/L (3.5-5.1); Sodium 121 mEq/L (136-145); eGFR For Non-African Americans > 60 (> 60)
[2017-10-18] MEDS: Mirtazapine 15 MG TABLET PO SCH (22:34)
[2017-10-19] MEDS: *HR* Heparin 5,000 UNIT/ML VIAL SQ SCH (06:16)
[2017-10-19 07:29] VITALS: BP 154/72
[2017-10-19 08:21] LABS: BUN/Creatinine Ratio 9 (6-26); Blood Urea Nitrogen 5 mg/dL (8-23); Calcium 8.6 mg/dL (8.6-10.3); Carbon Dioxide 20 mEq/L (23-29); Chloride 100 mEq/L (98-107); Glucose 122 mg/dL (70-105); Osmolality,Calculated 269 (280-300); Potassium 3.6 mEq/L (3.5-5.1); Sodium 130 mEq/L (136-145); eGFR For Non-African Americans > 60 (> 60)
[2017-10-19] MEDS: Aspirin 81 MG TAB.CHEW PO SCH (08:50)
[2017-10-19] MEDS: amLODIPine 5 MG TABLET PO SCH (08:50)
--- NOTE | 2017-10-19 10:54 | Discharge Summary ---
- NOTES TO OUTPATIENT PROVIDER Notes to Outpatient Provider: BMP within a week Date of Encounter: 10/19/17 Time of Encounter: 10:52 - Discharge Diagnosis (1) Hyponatremia Priority: Primary Status: Resolved Assessment and Plan: Possibly secondary to polydipsia. As per patient daughter the patient drinks around 2 L of water per day (2) Hypertension Priority: Secondary Status: Chronic Qualifiers: Hypertension type: unspecified Qualified Code(s): I10 - Essential (primary ) hypertension (3) CAD (coronary artery disease) Priority: Secondary Status: Chronic Qualifiers: Coronary Disease-Associated Artery/Lesion type: [place] artery [place] vs. transplanted heart: [place] heart Associated angina: angina presence unspecified Qualified Code(s): I25.10 - Atherosclerotic heart disease of [place] coronary artery without angina pectoris (4) DVT prophylaxis Priority: Secondary Status: Acute Hospital course: Ms. Friedman is a 82 year old female past medical history CAD with prior [place], hypertension, hyperlipidemia. Patient presented to the hospital due to mild lethargy. As part of the workup BMP reveled severe hyponatremia with serum sodium of 114. Hyponatremia is believed to be due to polydipsia. As per patient's daughter patient drinks around 2 L of water a day. Continue physical examination patient was alert, oriented to person and place. Hyponatremia treated with water restriction, normal saline. Serum sodium is almost corrected, no change in mental status, no dizziness, lightheadedness, or lethargy. Patient and family members educated about the importance of decreasing the amount of water the patient is drinking in a day. Discussed with the nephrology (Dr. Dueñas) who was following the patient, he agrees discharging the patient and follow with them within a week. Physical therapy offered to the patient, but patient's daughter who is the POA refused as she wants to take the patient home and continue the same level of care the patient had before this admission. Discharge discussed with: patient, family, nurse - Time Spent with Patient Total time spent providing and/or coordinating discharge services: Greater than 30 minutes - Discharge Medications Home Medications: Lactose-Reduced Food [Boost Breeze] 10 ml PO BID 10/24/15 [History] Nitroglycerin 0.4 mg SL Q5MIN PRN #0 tab.subl 10/25/15 [Rx] Aspirin Enteric Coated [Aspirin EC] 81 mg PO DAILY 05/02/16 [History] Mirtazapine [Remeron] 15 mg PO HS 05/02/16 [History] Clopidogrel [Plavix] 75 mg PO DAILY #30 tablet 03/01/17 [Rx] Amlodipine Bes/Olmesartan Med [Cuate 10-40 mg Tablet] 1 tab PO DAILY 10/17/17 [ History] Atorvastatin [Lipitor] 10 mg PO HS 10/17/17 [History] Carvedilol 12.5 mg PO BID 10/17/17 [History] DULoxetine [Cymbalta] 30 mg PO DAILY 10/17/17 [History] Allergies/Adverse Reactions: 3 Allergy/AdvReac Type Severity Reaction Status Date / Time tramadol Allergy Rash Verified 10/17/17 12:47 Date of admission: 10/17/17 18:06 Primary care physician: Ana Oliveros MD Consults: 10/17/17 18:14 Consult to Nutrition [CONS] Routine Comment: Consulting Provider: NUTRITION Reason for Dietary Consult: MST Score 10/18/17 10:49 Consult to Physical Therapy [CONS] Routine Comment: Evaluate, develop and implement POC Reason for Consult: Generalized weakness Does patient have active BEDREST order?: No Is patient medically & hemodynamically stable?: Yes - Constitutional Vitals: Temp Pulse Resp BP Pulse Ox 98.0 F 62 18 154/72 98 10/19/17 07:27 10/19/17 07:27 10/19/17 07:27 10/19/17 07:27 10/19/17 07:27 Exam: General: Alert and oriented to person, and place. HEENT: EOM, pupils equal, round and reactive. Cardiovascular:Normal S1 & S2, no rubs, murmurs or gallops. No JVD. Pulse regular. Lungs: Normal breath sounds, no wheezes or crackles. Abdomen: Soft, non-tender, no rigidity. Extremities: no edema or tenderness, no joint swelling or clubbing. Neurological: mild cognitive Impairment. Rest of physical exam is non contributory - Patient Status Disposition: Home Health Service Condition: Good Functional capacity at discharge: uses cane/walker Overall status at discharge: patient is progressing back to baseline - Discharge Instructions Follow Up With: Ana Oliveros MD [Primary Care Provider] - - Diet and Activity Activity: resume usual activities as tolerated Diet: advance to your usual diet
== END 2017-10-19 14:21 | disposition home health service (06) | DRG 641 ==
LOC: 2ANU 12:31 → EMEROOARM 12:31 → 2ANU 15:29
PROVIDERS: ADMIT Internal Medicine; ATTEND Internal Medicine

== ENCOUNTER 2018-01-20 07:20 | Observation (INO) ==
[2018-01-20] MEDS ORDERED: 0.9 % Sodium Chloride 1,000 ML IVC STA (07:33)
[2018-01-20 07:44] LABS: Basophils % 0.4 %; Eosinophils % 0.4 %; Hematocrit 40.7 % (35.3-44.9); Hemoglobin 13.8 g/dL (11.5-15.4); Immature Granulocytes % 0.3 % (0-4); Lymphocytes # 1.4 K/mcL (0.6-4.6); Lymphocytes % 18.2 %; Mean Corpuscular HGB Conc 33.9 g/dL (31.6-35.5); Mean Corpuscular Hemoglobin 31.4 pg (28.0-33.3); Mean Corpuscular Volume 92.7 fL (83.0-100.0); Mean Platelet Volume 10.1 fL (9.4-12.4); Monocytes # 0.4 K/mcL (0.0-1.3); Monocytes % 5.1 %; Neutrophils # 5.7 K/mcL (1.6-8.9); Platelet Count 209 K/mcL (140-400); Red Blood Count 4.39 M/mcL (3.82-4.97); Red Cell Distribution Width 13.4 % (11.5-14.5); Segmented Neutrophils % 75.6 %
--- NOTE | 2018-01-20 07:52 | Emergency Department Note ---
Disposition Clinical Impression: Weakness, SVT (supraventricular tachycardia), Confusion UTI (urinary tract infection) Qualifiers: Urinary tract infection type: site unspecified Hematuria presence: without hematuria Qualified Code(s): N39.0 - Urinary tract infection, site not specified Disposition: Admitted As Inpatient Condition: Good Referrals: Ana Oliveros MD [Primary Care Provider] - Forms: ED Satisfaction Letter General Adult HPI - General Chief complaint: ED Fall Stated complaint: Fall Time Seen by Provider: 01/20/18 07:25 Source: patient, EMS Limitations: no limitations Nursing Notes Reviewed: Yes Vital Signs Reviewed: Yes - History of Present Illness HPI Narrative: Patient presents today from home via EMS. Patient initially had call out after a fall. Patient denies hitting her head. She denies anticoagulation. She was diaphoretic at the scene so the paramedics were called and she was brought to the emergency department. Heart rate had been 150. She underwent vagal maneuvers with no success. EKG shows supraventricular tachycardia does appear to be narrow and regular. No flutter waves. The patient is currently stable with stable blood pressure. She has had confusion and reports progressive weakness as well as concerns for urinary tract infection. Given other specific etiology she will undergo some fluid resuscitation before possible cardio version. Patient is denying chest pain shortness of breath or any other symptoms at this time. She states that she does not feel that she needs to be here. She does warrant undergoing further evaluation and treatment of her condition. Pain Scale: 0 - Related Data Home Medications Medication Instructions Recorded Confirmed Lactose-Reduced Food [Boost Breeze] 10 ml PO BID 10/24/15 01/20/18 Aspirin Enteric Coated [Aspirin EC] 81 mg PO DAILY 05/02/16 01/20/18 Amlodipine Bes/Olmesartan Med 1 tab PO DAILY 10/17/17 01/20/18 [Cuate 10-40 mg Tablet] Atorvastatin [Lipitor] 10 mg PO HS 10/17/17 01/20/18 Carvedilol 12.5 mg PO BID 10/17/17 01/20/18 DULoxetine [Cymbalta] 30 mg PO DAILY 10/17/17 01/20/18 Oxycodone HCl/Acetaminophen 1 tab PO TID PRN 01/20/18 01/20/18 [Percocet 5-325 mg Tablet] traZODone [TraZODone] 50 mg PO HS 01/20/18 01/20/18 Previous Rx's Medication Instructions Recorded Nitroglycerin 0.4 mg SL Q5MIN PRN #0 tab.subl 10/25/15 Clopidogrel [Plavix] 75 mg PO DAILY #30 tablet 03/01/17 Allergies Allergy/AdvReac Type Severity Reaction Status Date / Time tramadol Allergy Rash Verified 10/17/17 12:47 All systems ED: reviewed and negative except as stated. Review of Systems: As Per HPI Constitutional: Reports: weakness. Denies: fever, chills ENT ED: Denies: congestion Cardiovascular: Reports: palpitations, other (Diaphoresis). Denies: chest pain, syncope Respiratory: Denies: cough, dyspnea Gastrointestinal: Denies: abdominal pain, nausea Genitourinary: Denies: urgency, dysuria Musculoskeletal: Denies: back pain Integumentary: Reports: other (Skin tear to left nieves) Neurological: Reports: weakness (Generalized). Denies: headache Past Medical History - Past Medical History Medical history: Reports: arthritis, cardiomyopathy, coronary artery disease, CVA, hyperlipidemia, hypertension, myocardial infarction, other Surgical history: Reports: hysterectomy Psychiatric history: Reports: no psych history YARN DUMPER history: Reports: non-contributory - Social History Smoking Status: Never smoker Smokeless Tobacco Status: No Alcohol use: Reports: none Drug use: Reports: none Physical Exam - General Limitations: no limitations General appearance: alert, in no apparent distress - Head Head exam: atraumatic, normocephalic - Eye Eye exam: Present: normal appearance, PERRL. Absent: scleral icterus - ENT ENT exam: normal exam, normal oropharynx - Neck Neck exam: Present: normal inspection - Chest Chest inspection: Present: normal inspection, symmetric chest wall rise - Respiratory Respiratory exam: Present: normal lung sounds bilaterally. Absent: respiratory distress, wheezes - Cardiovascular Cardiovascular exam: Present: tachycardia - Abdominal Exam Abdominal exam: Present: soft, Non-Tender - Extremities Exam Extremities exam: Present: normal inspection, other (Skin her left nieves U-shaped in approximately 2-1/2 cm in total length) - Expanded Lower Extremity Exam Hip/Pelvis exam: Present: normal inspection. Absent: tenderness Knee exam: Present: normal inspection. Absent: tenderness Lower leg exam: Absent: tenderness Ankle exam: Present: normal inspection. Absent: tenderness Foot/toe exam: Present: normal inspection. Absent: tenderness Neurovascular/Tendon exam: Present: normal capillary refill. Absent: motor deficit, sensory deficit - Back Exam Back exam: Present: normal inspection. Absent: tenderness - Neurological Exam Neurological exam: Present: alert, other (Oriented to place but not time.) - Skin Skin exam: Present: other (Skin tear. See extremity for further documentation) Course Course Narrative: Patient undergoing further evaluation for fall as well as generalized weakness and SVT. - Reevaluation(s) Reevaluation #1: Patient to have concern for urinary tract infection. Urinalysis was collected with straight catheter. The patient's SVT did require treatment beyond fluids. Valsalva maneuvers were attempted after approximately 500 mL with fluid and again after approximately 1200 mL with fluid. These did not work and She was given verapamil 2.5 mg IV 2 with conversion to sinus rhythm with heart rate of 86. Patient has been confused during her stay. Given her large urinary tract infection and SVT she will require admission for further monitoring and treatment. Patient has had UTI in the past with multiple resistant patterns. A dose of Bactrim and ceftriaxone of both been given. - Consultations Consultation #1: Discussed with hospitalist. Patient accepted for admission. Request cardiology consult. Consult placed within the computer system. Vital Signs Temperature 97.8 F 01/20/18 07:21 Pulse Rate 152 01/20/18 07:21 Respiratory Rate 18 01/20/18 07:21 Blood Pressure 119/91 01/20/18 07:21 O2 Sat by Pulse Oximetry 100 01/20/18 07:21 Temperature 97.8 F 01/20/18 07:21 Pulse Rate 83 01/20/18 10:02 Respiratory Rate 20 01/20/18 10:02 Blood Pressure 106/63 01/20/18 10:02 O2 Sat by Pulse Oximetry 97 01/20/18 10:02 Oxygen Delivery Oxygen Delivery Room Air Medical Decision Making - Medical Records Medical records reviewed: Yes I reviewed the patient's medical records. - Lab Data Lab results reviewed: Yes I reviewed the patient's lab results. Result diagrams: 01/20/18 07:38 01/20/18 07:38 Lab Results 01/20/18 01/20/18 01/20/18 Range/Units 07:38 07:38 07:40 WBC 7.5 (4.3-11.1) K/mcL RBC 4.39 (3.82-4.97) M/mcL Hgb 13.8 (11.5-15.4) g/dL Hct 40.7 (35.3-44.9) % MCV 92.7 (83.0-100.0) fL MCH 31.4 (28.0-33.3) pg MCHC 33.9 (31.6-35.5) g/dL RDW 13.4 (11.5-14.5) % Plt Count 209 (140-400) K/mcL MPV 10.1 (9.4-12.4) fL Immature Gran % 0.3 (0-4) % Seg Neutrophils % 75.6 % Lymphocytes % 18.2 % Monocytes % 5.1 % Eosinophils % 0.4 % Basophils % 0.4 % Neutrophils # 5.7 (1.6-8.9) K/mcL Lymphocytes # 1.4 (0.6-4.6) K/mcL Monocytes # 0.4 (0.0-1.3) K/mcL Eosinophils # 0.0 (0.0-0.6) K/mcL Basophils # 0.0 (0.0-0.2) K/mcL Sodium 135 L (136-145) mEq/L Potassium 3.4 L (3.5-5.1) mEq/L Chloride 96 L (98-107) mEq/L Carbon Dioxide 22 L (23-29) mEq/L BUN 8 (8-23) mg/dL Creatinine 1.19 (0.60-1.20) mg/dL Est GFR ( Amer) 53 L (> 60) Est GFR (Non-Af Amer) 43 L (> 60) BUN/Creatinine Ratio 7 (6-26) Glucose 184 H (70-105) mg/dL Calculated Osmolality 283 (280-300) Calcium 9.6 (8.6-10.3) mg/dL Magnesium 1.8 (1.6-2.6) mg/dL Total Bilirubin 1.5 H (0.3-1.0) mg/dL AST 28 (13-39) Units/L ALT 12 (7-52) Units/L Alkaline Phosphatase 59 (34-104) Units/L Creatine Kinase 367 H (30-223) Units/L Troponin I 0.03 (< 0.04) ng/mL Serum Total Protein 7.6 (6.4-8.9) g/dL Albumin 4.3 (3.5-5.7) g/dL Globulin 3.3 (2.4-3.5) g/dL Albumin/Globulin Ratio 1.3 (1.1-2.2) TSH 2.615 (0.340-5.600) mcIU/mL Urine Color Dark Yellow (Yellow) Urine Clarity Turbid A (Clear) Urine pH 6.0 (5.0-8.0) pH Units Ur Specific [place] < 1.005 L (1.010-1.025) Urine Protein Trace (Neg-Trace) mg/dL Urine Glucose (UA) Normal (Normal) mg/dL Urine Ketones Negative (Negative) mg/dL Urine Blood Small H (Negative) Urine Nitrite Negative (Negative) Urine Bilirubin Negative (Negative) Urine Urobilinogen Normal (Normal) mg/dL Ur Leukocyte Esterase Large H (Negative) Urine Microscopic RBC 0-3 (0-3) per hpf Urine Microscopic WBC TNTC H (0-3) per hpf Ur Squamous Epith Cells Moderate H (None-Few) per lpf Urine Bacteria Moderate H (None-Few) per hpf Urine Mucus Moderate H (Few) Ur Culture Indicated? YES A (NO) - Radiology Data Radiology results reviewed: Yes I reviewed the patient's radiology results. - EKG Data EKG #1 EKG attestation: Yes I reviewed and interpreted this EKG. EKG results narrative: EKG shows supraventricular tachycardia with heart rate of 149. QRS 117. QTC 481. No significant ST elevations or depressions. Critical Care Time Critical Care Time: Yes Total Critical Care Time: 50 Attestation: Critical care time was exclusive of separately billable procedures and treating other patients. Critical care was necessary to treat or prevent imminent or life-threatening deterioration. Critical care was time spent personally by me on the following activities: development of treatment plan with patient and/or surrogate as well as nursing, discussions with consultants, evaluation of patient's response to treatment, examination of patient, obtaining history from patient or surrogate, ordering and performing treatments and interventions, ordering and review of laboratory studies, ordering and review of radiographic studies, pulse oximetry and re-evaluation of patient's condition.
[2018-01-20 08:04] LABS: Bilirubin,Urine Negative (Negative); Blood,Urine Small (Negative); Clarity,Urine Turbid (Clear); Color,Urine Dark Yellow (Yellow); Glucose,Urine (UA) Normal (Normal); Ketones,Urine Negative (Negative); Leukocyte Esterase,Urine Large (Negative); Nitrite,Urine Negative (Negative); Protein,Urine Trace mg/dL (Neg-Trace); Specific Gravity,Urine < 1.005 (1.010-1.025); Urobilinogen,Urine Normal (Normal)
[2018-01-20 08:06] LABS: RBC,Urine 0-3 per hpf (0-3); WBC,Urine TNTC per hpf (0-3)
[2018-01-20 08:06] LABS: Albumin 4.3 g/dL (3.5-5.7); Albumin/Globulin Ratio 1.3 (1.1-2.2); Bilirubin,Total 1.5 mg/dL (0.3-1.0); Calcium 9.6 mg/dL (8.6-10.3); Globulin 3.3 g/dL (2.4-3.5); Magnesium 1.8 mg/dL (1.6-2.6); Potassium 3.4 mEq/L (3.5-5.1); Total Protein 7.6 g/dL (6.4-8.9)
[2018-01-20 08:18] LABS: Bacteria,Urine Moderate per hpf (None-Few); Mucus,Urine Moderate (Few); Squamous Epithelial Cell,Urine Moderate per lpf (None-Few)
[2018-01-20 08:39] LABS: Troponin I 0.03 ng/mL (< 0.04)
[2018-01-20 08:53] LABS: Thyroid Stimulating Hormone 2.615 mcIU/mL (0.340-5.600)
[2018-01-20] MEDS ORDERED: Potassium Chloride Elixir 20 MEQ/15 ML UDC PO ONE (08:55)
[2018-01-20] MEDS ORDERED: Sulfamethoxazole/Trimeth DS 1 EACH TABLET PO ONE (08:55)
[2018-01-20] MEDS ORDERED: cefTRIAXone 1,000 MG in Water for inj. (sterile) 20 ML 10 ML IVP ONE (08:55)
[2018-01-20] MEDS ORDERED: 0.9 % Sodium Chloride 500 ML IVC ONE (09:18)
[2018-01-20] MEDS ORDERED: Verapamil 5 MG/2 ML VIAL IVP STA ×2 (09:27→09:47)
--- NOTE | 2018-01-20 12:33 | Internal Med History&Physical ---
Date of Encounter: 01/20/18 Time of Encounter: 12:31 Internal Medicine - H&P: HPI Chief complaint: generalized weakness Admitted From: Emergency Dept Plans for Post Hospital Care: Home History of present illness: Ms. Friedman is a 82 year old female Patient with history of cardiomyopathy ejection fraction 40%, CAD had history of [place] in the past, high cholesterol, hypertension, patient presented emergency room with the generalized weakness some nausea on arrival she was found in SVT given verapamil and converted to sinus rhythm work up shows patient has a UTI she was also has some confusion when I saw patient her she is awake able to answer questions denies any fever or chills no chest pain will be admitted to observation for treatment of UTI generalized weakness cardiology has been already consulted from the ER for evaluation of SVT episode. She remains in sinus rhythm at present Past Med Surg Social Fam HX - Past Medical History Medical history: arthritis, cardiomyopathy, coronary artery disease, CVA, hyperlipidemia, hypertension, myocardial infarction, other Additional medical history: Posturnal dizziness presyncope. hypokalemia. hyponatremia. NSTEMI. thrombocytopenia Psychiatric history: no psych history - Past Surgical History Surgical History: hysterectomy - Social History Smoking Status: Never smoker Smokeless Tobacco Status: No Alcohol use: none Drug use: none - Family History Mother Living Status: Hx Family Cardiac Disorders: Yes Internal Medicine - H&P: Meds Lactose-Reduced Food [Boost Breeze] 10 ml PO BID 10/24/15 [History] Nitroglycerin 0.4 mg SL Q5MIN PRN #0 tab.subl 10/25/15 [Rx] Aspirin Enteric Coated [Aspirin EC] 81 mg PO DAILY 05/02/16 [History] Clopidogrel [Plavix] 75 mg PO DAILY #30 tablet 03/01/17 [Rx] Amlodipine Bes/Olmesartan Med [Cuate 10-40 mg Tablet] 1 tab PO DAILY 10/17/17 [History] Atorvastatin [Lipitor] 10 mg PO HS 10/17/17 [History] Carvedilol 12.5 mg PO BID 10/17/17 [History] DULoxetine [Cymbalta] 30 mg PO DAILY 10/17/17 [History] Oxycodone HCl/Acetaminophen [Percocet 5-325 mg Tablet] 1 tab PO TID PRN 01/20/18 [History] traZODone [TraZODone] 50 mg PO HS 01/20/18 [History] Allergy/AdvReac Type Severity Reaction Status Date / Time tramadol Allergy Rash Verified 10/17/17 12:47 All Systems PM: A 10-system review of systems was performed and is negative for pertinent findi ngs except as documented above in the HPI. - Constitutional Vitals: Temp Pulse Resp BP Pulse Ox 97.8 F 89 16 132/88 95 01/20/18 07:21 01/20/18 10:57 01/20/18 10:57 01/20/18 10:57 01/20/18 10:57 Exam: done - Head Head exam: Present: atraumatic, normocephalic - Eye Eye exam: Present: PERRL, conjuntiva pink, sclera anicteric Pupils: Present: PERRL - Neck Neck exam general surgery: Present: supple, trachea midline. Absent: lymphadenopathy - Respiratory Respiratory exam: Present: CTAB. Absent: accessory muscle use, rales, rhonchi, wheezes - Cardiovascular Cardiovascular exam: Present: RRR, +S1, +S2. Absent: diastolic murmur, gallop, rubs, systolic murmur - GI/Abdominal GI/Abdominal exam: Present: normal bowel sounds, soft, no peritoneal signs. Absent: distended, tenderness - Extremities Exam Extremities exam: Present: warm, radial pulses palpable and symmetrical. Absent: calf tenderness, cyanotic, pedal edema - Neurological Exam Neurological exam: Present: CN II-XII intact, oriented X3, no focal deficits. Absent: pronater drift, facial droop, speech deficit - Skin Skin exam: Present: dry, intact Internal Med - H&P Results - Labs CBC & Chem 7: 01/20/18 07:38 01/20/18 07:38 Labs: Short CBC 01/20/18 Range/Units 07:38 WBC 7.5 (4.3-11.1) K/mcL Hgb 13.8 (11.5-15.4) g/dL Hct 40.7 (35.3-44.9) % Plt Count 209 (140-400) K/mcL Neutrophils # 5.7 (1.6-8.9) K/mcL BMP 01/20/18 07:38 Sodium 135 L Potassium 3.4 L Chloride 96 L Carbon Dioxide 22 L BUN 8 Creatinine 1.19 Glucose 184 H Calcium 9.6 Cardiac Enzymes 01/20/18 Range/Units 07:38 Troponin I 0.03 (< 0.04) ng/mL Liver Function 01/20/18 Range/Units 07:38 Total Bilirubin 1.5 H (0.3-1.0) mg/dL AST 28 (13-39) Units/L ALT 12 (7-52) Units/L Alkaline Phosphatase 59 (34-104) Units/L Albumin 4.3 (3.5-5.7) g/dL Urine 01/20/18 Range/Units 07:40 Urine Color Dark Yellow (Yellow) Urine Clarity Turbid A (Clear) Urine pH 6.0 (5.0-8.0) pH Units Ur Specific [place] < 1.005 L (1.010-1.025) Urine Protein Trace (Neg-Trace) mg/dL Urine Glucose (UA) Normal (Normal) mg/dL - Impressions ITS Impressions Chest X-Ray 01/20/18 07:25 IMPRESSION: No acute process. Stable old left rib fractures D/ / Anibal Parrish MD / Anibal Parrish MD Interpreting Provider: Anibal Parrish MD Head CT 01/20/18 07:26 IMPRESSION: No acute intracranial abnormality. Cerebral atrophy and chronic small vessel ischemic changes in the white matter unchanged as is a 2 cm partially calcified miles in the scalp in the anterior right paramedian soft tissues along the vertex. D/ / Noel Horner MD / Noel Horner MD Interpreting Provider: Noel Horner MD Pelvis X-Ray 01/20/18 07:26 IMPRESSION: No acute osseous abnormality. Mild left hip osteoarthritis D/ / Anibal Parrish MD / Anibal Parrish MD Interpreting Provider: Anibal Parrish MD - Assessment and plan (1) UTI (urinary tract infection) Current Visit: Yes Status: Acute Assessment and plan: We sent urine culture and start on Rocephin Qualifiers: Urinary tract infection type: acute cystitis Hematuria presence: without hematuria Qualified Code(s): N39.0 - Urinary tract infection, site not specified (2) Hypokalemia Current Visit: No Status: Acute Assessment and plan: Being replaced recheck in a.m. (3) Hypertension Current Visit: No Status: Chronic Assessment and plan: Chronic and well controlled Qualifiers: Hypertension type: essential hypertension Qualified Code(s): I10 - Essential (primary) hypertension (4) Weakness Current Visit: Yes Status: Acute Assessment and plan: Nonspecific will consult PTOT (5) SVT (supraventricular tachycardia) Current Visit: Yes Status: Acute Assessment and plan: SVT episode converted to sinus rhythm cartilages consult taped for further evaluation (6) Confusion Current Visit: Yes Status: Acute - Time Spent With Patient Total time spent is greater than 50% in coordination of care (as documented) at patient's floor/unit and/or counseling patient:
[2018-01-20] MEDS ORDERED: Naloxone 0.4 MG/ML INJ IVP PRN (12:38)
[2018-01-20] MEDS ORDERED: Acetaminophen 325 MG TABLET PO PRN (12:38)
[2018-01-20] MEDS ORDERED: *HR* OxyCODONE/APAP 5/325 TABLET PO PRN (12:41)
--- NOTE | 2018-01-20 14:13 | Cardiology Consult Note ---
Addendum entered and electronically signed by Zi Maradiaga MD 01/22/18 11:27: I examined this patient and my medical decision-making was reviewed with the COIL MACHINE OPERATOR. I agree with the documented findings, disposition and treatment plan as described except to the extent set forth below. AP: SVT aborted with verapamil CAD sp PCI Minimally elevated troponin without angina in setting of SVT and pt declines intervention Continue current medical therapy. Thank you for the consult, Zi Maradiaga MD [facility] Original Note: Date of Encounter: 01/20/18 Time of Encounter: 14:10 Assessment and Plan (1) SVT (supraventricular tachycardia) Current Visit: Yes Status: Acute Pt reported to have SVT in the ED with HR 150's in the setting of possible UTI, infection. HR improved with IV verapamil. Pt with known CAD and ICMP. Continue bb and add verapamil. Continue asa. (2) Elevated troponin Current Visit: No Status: Acute Mild troponin 0.03, 0.09 in the setting of known severe 3V CAD and SVT. EKG taken show NSR with no acute ST changes. She denies chest pain. No further testing. Pt declines intervention for her heart disease. Previously on home hospice. (3) CAD (coronary artery disease) Current Visit: No Status: Chronic H/o severe 3V CAD. [facility] 02/2017- 70% stenosis in the LMCA. 80% stenosis in the Proximal LAD. 50% stenosis in the Mid LAD. 99% stenosis in the 1st Marginal.100% stenosis in the Proximal RCA. The lesion has collaterals which feed from left to right. pt opted for medical management. TT-LVEF 45-50%. Continue asa, plavix, statin, and bb. She denies chest pain. Qualifiers: Coronary Disease-Associated Artery/Lesion type: [place] artery [place] vs. transplanted heart: [place] heart Associated angina: angina presence unsp ecified Qualified Code(s): I25.10 - Atherosclerotic heart disease of [place] coronary artery without angina pectoris Discussion w patient/family: The assessment and plan as outlined above was discussed with the patient and/or family members who expressed understanding and agreement. All questions were answered. Thank you for involving us in the care of your patient. Please call with any questions. History of Present Illness Consult date: 01/20/18 Requesting physician: Gustavo Thakkar Consult reason: SVT Chief complaint: "sweating" History of present illness: Ms. Friedman is a 82 year old female with past medical history significant for PA and known severe three vessel CAD, mild ischemic cardiomyopathy, syncope, bradycardia, and CVA. She presented by EMS to the hospital after falling at home. Pt says she fell out of bed three days ago but appears confused on my exam. SHe was re-oriented to time. C/o profuse sweating and nausea. She was evaluated in February of this year for PA and underwent LHC that revealed severe 3 vessel CAD. She declined intervention at that time and was discharged home on hospice. She is not sure that she had hospice at home any longer. She still does not wish to have any invasive procedures on her heart. Past Med Surg Social Fam HX - Past Medical History Medical history: arthritis, cardiomyopathy, coronary artery disease, CVA, hyperlipidemia, hypertension, myocardial infarction, other Additional medical history: Posturnal dizziness presyncope. hypokalemia. hyponatremia. NSTEMI. thrombocytopenia Psychiatric history: no psych history - Past Surgical History Surgical History: hysterectomy - Social History Smoking Status: Never smoker Smokeless Tobacco Status: No Alcohol use: none Drug use: none - Family History Mother Living Status: Hx Family Cardiac Disorders: Yes Medications and Allergies Lactose-Reduced Food [Boost Breeze] 10 ml PO BID 10/24/15 [History] Nitroglycerin 0.4 mg SL Q5MIN PRN #0 tab.subl 10/25/15 [Rx] Aspirin Enteric Coated [Aspirin EC] 81 mg PO DAILY 05/02/16 [History] Clopidogrel [Plavix] 75 mg PO DAILY #30 tablet 03/01/17 [Rx] Amlodipine Bes/Olmesartan Med [Cuate 10-40 mg Tablet] 1 tab PO DAILY 10/17/17 [History] Atorvastatin [Lipitor] 10 mg PO HS 10/17/17 [History] Carvedilol 12.5 mg PO BID 10/17/17 [History] DULoxetine [Cymbalta] 30 mg PO DAILY 10/17/17 [History] Oxycodone HCl/Acetaminophen [Percocet 5-325 mg Tablet] 1 tab PO TID PRN 01/20/18 [History] traZODone [TraZODone] 50 mg PO HS 01/20/18 [History] Allergy/AdvReac Type Severity Reaction Status Date / Time tramadol Allergy Rash Verified 10/17/17 12:47 All Systems Review: The remainder of the systems were reviewed and are negative Physical Examination Vital Signs, Last 4 Hours Temp Pulse Resp BP Pulse Ox 01/20/18 12:42 98.2 F 88 20 158/80 96 01/20/18 10:57 89 16 132/88 95 General: Conversant, Other (Pale, diaphoretic) HEENT: Atraumatic, Normocephaly, Mucus Membranes Moist Neck: No JVD, Normal carotid pulses Cardiac: Reg Rate and Rhythm, Normal S1 and S2, No Murmur Lungs: Normal Breath Sounds, No Wheeze, Rales, Rhonchi Neuro: Alert and responsive, No focal deficits noted Abdomen: Soft, Non-Tender Skin: No rashes noted on visualized skin Musculoskeletal: No Chest Wall Tenderness Extremities: No Clubbing, No Cyanosis, No Edema, Normal Pulses Results 01/20/18 07:38 01/20/18 07:38 Lab Results 01/20/18 01/20/18 07:38 07:38 WBC 7.5 Hgb 13.8 Hct 40.7 Plt Count 209 Sodium 135 L Potassium 3.4 L Chloride 96 L Carbon Dioxide 22 L BUN 8 Creatinine 1.19 Glucose 184 H Calcium 9.6 Magnesium 1.8 Total Bilirubin 1.5 H AST 28 ALT 12 Alkaline Phosphatase 59 Troponin I 0.03 TSH 2.615 - Imaging and Cardiology Echo: report reviewed Cardiac cath: report reviewed - EKG Interpretation EKG results cardiology: personally reviewed Consult Discharge Plan - Plan Referrals: Ana Oliveros MD [Primary Care Provider] -
[2018-01-20] MEDS: 0.9 % Sodium Chloride 1,000 ML IVC SCH (14:43)
[2018-01-20] MEDS: Verapamil ER (24 HR) 120 MG TABLET.ER PO SCH (16:19)
[2018-01-20] MEDS ORDERED: Ondansetron 4 MG/2 ML VIAL IVP PRN (17:31)
[2018-01-20] MEDS: traZODone 50 MG TABLET PO SCH (20:20)
[2018-01-20] MEDS ORDERED: LACTOSE REDUCED FOOD PO SCH (21:00)
--- NOTE | 2018-01-20 21:15 | Event Note ---
Date of Encounter: 01/20/18 Time of Encounter: 21:[address] Nascimento regulation supervisor for cardiology regarding troponin increase from 0.09 to 0.31, patient still not reporting chest pain, though is disoriented at baseline. Informed next troponin scheduled for 0030. Dr Nascimento requested to check next troponin and start heparin drip if continues to elevate, but no intervention necessary if stays same or trends down.
[2018-01-21 01:04] LABS: Hematocrit 31.5 % (35.3-44.9); Hemoglobin 10.8 g/dL (11.5-15.4); Mean Corpuscular HGB Conc 34.3 g/dL (31.6-35.5); Mean Corpuscular Hemoglobin 31.3 pg (28.0-33.3); Mean Corpuscular Volume 91.3 fL (83.0-100.0); Mean Platelet Volume 10.9 fL (9.4-12.4); Platelet Count 124 K/mcL (140-400); Red Blood Count 3.45 M/mcL (3.82-4.97); Red Cell Distribution Width 13.5 % (11.5-14.5)
[2018-01-21 01:16] LABS: Magnesium 1.5 mg/dL (1.6-2.6)
[2018-01-21 01:20] LABS: Troponin I 1.77 ng/mL (< 0.04)
[2018-01-21] MEDS ORDERED: *HR* Heparin 5,000 UNIT/ML VIAL IVP PRN ×2 (01:36)
[2018-01-21] MEDS ORDERED: *HR* Heparin 5,000 UNIT/ML VIAL IVP ONE (01:36)
[2018-01-21] MEDS ORDERED: Heparin 25,000 UNIT/500 ML D5W 25,000 UNIT/500 ML BAG IVC SCH (01:45)
[2018-01-21 02:57] LABS: Hematocrit 32.2 % (35.3-44.9); Hemoglobin 10.9 g/dL (11.5-15.4); Mean Corpuscular HGB Conc 33.9 g/dL (31.6-35.5); Mean Corpuscular Hemoglobin 31.6 pg (28.0-33.3); Mean Corpuscular Volume 93.3 fL (83.0-100.0); Mean Platelet Volume 10.6 fL (9.4-12.4); Platelet Count 127 K/mcL (140-400); Red Blood Count 3.45 M/mcL (3.82-4.97); Red Cell Distribution Width 13.6 % (11.5-14.5)
[2018-01-21 03:05] LABS: Heparin anti-factor XA UFH 0.98 IU/mL (0.30-0.70); INR 1.5; Prothrombin Time 16.6 Seconds (9.4-12.1)
--- NOTE | 2018-01-21 03:40 | Electrocardiograph Report ---
[place] [facility] Test Date: 2018-01-20 Pat Name: Esmer Friedman Department: [id number] Room: 2A43 Gender: F Corrosion Prevention Metal Sprayer: : 1935 Requested By: Gustavo Thakkar Order Number: [id number] Reading MD: Nathaniel Gutierrez Measurements Intervals [place] Rate: 149 P: 0 RI: QRS: 45 QRSD: 117 T: 132 QT: 305 QTc: 481 Interpretive Statements Supraventricular tachycardia LVH with secondary repolarization abnormality Electronically Signed On 01-21-2018 3:38:16 EST by Nathaniel Gutierrez
[2018-01-21] MEDS: 0.9 % Sodium Chloride 1,000 ML IVC SCH (05:31)
[2018-01-21 06:56] LABS: Troponin I 1.55 ng/mL (< 0.04)
[2018-01-21] MEDS ORDERED: [UNRECOGNIZED DRUG - OTHER] PO SCH (09:00)
[2018-01-21] MEDS ORDERED: OLMESARTAN MED PO SCH (09:00)
[2018-01-21] MEDS ORDERED: AMLODIPINE BES PO SCH (09:00)
[2018-01-21] MEDS ORDERED: amLODIPine 5 MG TABLET PO SCH (09:00)
[2018-01-21 09:17] LABS: BUN/Creatinine Ratio 8 (6-26); Blood Urea Nitrogen 7 mg/dL (8-23); Calcium 8.2 mg/dL (8.6-10.3); Carbon Dioxide 15 mEq/L (23-29); Chloride 105 mEq/L (98-107); Glucose 93 mg/dL (70-105); Osmolality,Calculated 274 (280-300); Potassium 3.8 mEq/L (3.5-5.1); Sodium 133 mEq/L (136-145); eGFR For Non-African Americans > 60 (> 60)
[2018-01-21] MEDS: Verapamil ER (24 HR) 120 MG TABLET.ER PO SCH (09:20)
[2018-01-21] MEDS: Aspirin Enteric Coated 81 MG Tablet PO SCH (09:21)
[2018-01-21] MEDS: cefTRIAXone 1,000 MG in Water for inj. (sterile) 20 ML 10 ML IVP SCH (09:24)
--- NOTE | 2018-01-21 10:14 | Cardiology Progress Note ---
Date of Encounter: 01/21/18 Time of Encounter: 09:59 Assessment and Plan (1) SVT (supraventricular tachycardia) Current Visit: Yes Status: Acute Pt reported to have SVT in the ED with HR 150's in the setting of possible UTI, infection. HR improved with IV verapamil. Pt with known CAD and ICMP. Continue bb and verapamil. Continue asa. No recurrent SVT seen. Cardiology will sign off. Call with questions. (2) Elevated troponin Current Visit: No Status: Acute Troponin elevation up to 1.77 in the setting of known severe 3V CAD, SVT, UTI. Type II LA. Agree with heprin gtt for 24-48hr. EKG taken show NSR with no acute ST changes. She denies chest pain. No further testing. Pt declines intervention for her heart disease. I spoke with ross Bahena who is listed as her POA. He confirms her wishes in the past but he has not taken care of her recently. Previously on home hospice earlier this year but does not appear to be now. Ross states someone comes in the home twice a week to help. No further cardiac testing at this time. She is not a candidate for cardiac rehab. Continue asa, statin, bb and heprin gtt for 48 hours. Consider palliative care consult if indicated. (3) CAD (coronary artery disease) Current Visit: No Status: Chronic H/o severe 3V CAD. [facility] 02/2017- 70% stenosis in the LMCA. 80% stenosis in the Proximal LAD. 50% stenosis in the Mid LAD. 99% stenosis in the 1st Marginal.100% stenosis in the Proximal RCA. The lesion has collaterals which feed from left to right. pt opt ed for medical management. TT-LVEF 45-50%. Continue asa, plavix, statin, and bb. She denies chest pain. Pt wishes to continue medical management. Qualifiers: Coronary Disease-Associated Artery/Lesion type: [place] artery [place] vs. transplanted heart: [place] heart Associated angina: angina presence unspecified Qualified Code(s): I25.10 - Atherosclerotic heart disease of [place] coronary artery without angina pectoris Discussion w patient/family: The assessment and plan as outlined above was discussed with the patient and/or family members who expressed understanding and agreement. All questions were answered. Thank you for involving us in the care of your patient. Please call with any questions. Subjective Principal diagnosis: SVT, elevated troponin, UTI Interval history: Ms. Friedman is resting in bed. She denies chest pain. Mild confusion noted. Objective Vital Signs, Last 4 Hours Temp Pulse Resp BP Pulse Ox 01/21/18 07:23 98.2 F 64 17 150/69 92 Results 01/21/18 02:50 01/21/18 06:19 Lab Results 01/20/18 01/20/18 01/21/18 13:50 19:55 00:44 WBC Hgb Hct Plt Count INR Sodium Potassium Chloride Carbon Dioxide BUN Creatinine Glucose Calcium Magnesium 1.5 L Troponin I 0.09 H* 0.31 H* 1.77 H* B-Natriuretic Peptide 01/21/18 01/21/18 01/21/18 00:44 00:44 02:50 WBC 5.2 5.3 Hgb 10.8 L D 10.9 L Hct 31.5 L 32.2 L Plt Count 124 L 127 L INR Sodium Potassium Chloride Carbon Dioxide BUN Creatinine Glucose Calcium Magnesium Troponin I B-Natriuretic Peptide 1045 H 01/21/18 01/21/18 02:50 06:19 WBC Hgb Hct Plt Count INR 1.5 Sodium 133 L Potassium 3.8 Chloride 105 Carbon Dioxide 15 L BUN 7 L Creatinine 0.84 Glucose 93 Calcium 8.2 L Magnesium Troponin I 1.55 H* B-Natriuretic Peptide Consult Discharge Plan - Plan Referrals: Ana Oliveros MD [Primary Care Provider] -
--- NOTE | 2018-01-21 11:55 | Internal Med Progress Note ---
Hospitalist Progress Note - Encounter Date of Encounter: 01/21/18 Time of Encounter: 11:53 - Subjective Interval History: I have seen and evaluated the patient at bedside. Patient reports feeling better, information provided by the patient not reliable due to patient dementia. denies chest pain or shortness of breath. As well as abdominal pain. - Exam Vitals: Temp Pulse Resp BP Pulse Ox 97.6 F 66 16 120/66 91 01/21/18 11:26 01/21/18 11:01/21/18 11:01/21/18 11:01/21/18 11: Exam: Vitals: Reviewed. General: Alert and oriented x4. In no distress Skin: Normal color, no rash, no lesions. HEENT: EOM, pupils equal, round and reactive. Cardiovascular: RRR, Normal S1 & S2, no rubs, murmurs or gallops. Lungs: Clear to auscultation bilaterally., no wheezes or crackles. Abdomen:Soft, non-tender, no rigidity. Extremities: No deformity, no edema or tenderness, no joint swelling or clubbing. Neurological: Normal motor skills. Mild to moderate dementia. Rest of the physical exam is non contributory - Assessment and Plan (1) SVT (supraventricular tachycardia) Current Visit: Yes Status: Resolved Assessment and Plan: SVT on presentation: resolved Plan Cardiology recommended to continue verapamil 120mg/PO daily on carvedilol 12.5mg/PO BID (2) UTI (urinary tract infection) Current Visit: Yes Status: Acute Assessment and Plan: Continue ceftriaxone 1 g IV daily. Urine culture: No growth. (3) Elevated troponin Current Visit: No Status: Acute Assessment and Plan: No chest pain or EKG changes. Cardiology consulted recommended against intervention. Continue heparin drip for 24 more hours. On a beta garth, aspirin, and statin. (4) CAD (coronary artery disease) Current Visit: No Status: Chronic Assessment and Plan: Continue dual antiplatelet therapy, on Plavix and aspirin. (5) History of CVA (cerebrovascular accident) Current Visit: No Status: Chronic (6) Hypertension Current Visit: No Status: Chronic Assessment and Plan: Blood pressure has been well controlled. Patient is on verapamil 120 mg by mouth daily, and carvedilol 12.5 mg by mouth twice a day. DVT Prophylaxis: Patient on a heparin drip due to elevated troponin. - Summary of Assessment and Plan Summary of Assessment and Plan: Patient to remain in the hospital On a heparin drip for 24 more hours. Potential discharge tomorrow. - Time Spent with Patient Total time spent is greater than 50% in coordination of care (as documented) at patient's floor/unit and/or counseling patient: Greater than 35 minutes (40) Plan of Care Discussed with: patient (the nurse and the family.) Internal Medicine: Result - Labs CBC & Chem 7: 01/21/18 02:50 01/21/18 06:19 Labs: Short CBC 01/21/18 01/21/18 Range/Units 00:44 02:50 WBC 5.2 5.3 (4.3-11.1) K/mcL Hgb 10.8 L D 10.9 L (11.5-15.4) g/dL Hct 31.5 L 32.2 L (35.3-44.9) % Plt Count 124 L 127 L (140-400) K/mcL BMP 01/21/18 06:19 Sodium 133 L Potassium 3.8 Chloride 105 Carbon Dioxide 15 L BUN 7 L Creatinine 0.84 Glucose 93 Calcium 8.2 L Cardiac Enzymes 01/20/18 01/20/18 01/21/18 Range/Units 13:50 19:55 00:44 Troponin I 0.09 H* 0.31 H* 1.77 H* (< 0.04) ng/mL 01/21/18 Range/Units 06:19 Troponin I 1.55 H* (< 0.04) ng/mL - ABG Interpretation ABG results: PT/INR, D-dimer PT 16.6 Seconds (9.4-12.1) H 01/21/18 02:50 Consult Discharge Plan - Plan Referrals: Ana Oliveros MD [Primary Care Provider] - (2) UTI (urinary tract infection) Qualifiers: Urinary tract infection type: acute cystitis Hematuria presence: without hematuria Qualified Code(s): N39.0 - Urinary tract infection, site not specified (4) CAD (coronary artery disease) Qualifiers: Coronary Disease-Associated Artery/Lesion type: [place] artery [place] vs. transplanted heart: [place] heart Associated angina: angina presence unspecified Qualified Code(s): I25.10 - Atherosclerotic heart disease of [place] coronary artery without angina pectoris (6) Hypertension Qualifiers: Hypertension type: essential hypertension Qualified Code(s): I10 - Essential (primary) hypertension
--- NOTE | 2018-01-21 14:59 | Electrocardiograph Report ---
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
[2018-01-21] MEDS: traZODone 50 MG TABLET PO SCH (21:39)
[2018-01-22 06:19] LABS: Calcium 8.8 mg/dL (8.6-10.3); Magnesium 1.6 mg/dL (1.6-2.6); Phosphorous 3.1 mg/dL (2.7-4.5); Potassium 3.5 mEq/L (3.5-5.1)
[2018-01-22 07:08] LABS: Basophils % 0.7 %; Eosinophils # 0.2 K/mcL (0.0-0.6); Eosinophils % 3.4 %; Hematocrit 32.7 % (35.3-44.9); Hemoglobin 11.1 g/dL (11.5-15.4); Immature Granulocytes % 0.2 % (0-4); Lymphocytes # 0.9 K/mcL (0.6-4.6); Lymphocytes % 20.2 %; Mean Corpuscular HGB Conc 33.9 g/dL (31.6-35.5); Mean Corpuscular Hemoglobin 31.8 pg (28.0-33.3); Mean Corpuscular Volume 93.7 fL (83.0-100.0); Mean Platelet Volume 10.8 fL (9.4-12.4); Monocytes # 0.4 K/mcL (0.0-1.3); Platelet Count 105 K/mcL (140-400); Red Blood Count 3.49 M/mcL (3.82-4.97); Red Cell Distribution Width 13.6 % (11.5-14.5); Segmented Neutrophils % 66.5 %
[2018-01-22] MEDS: cefTRIAXone 1,000 MG in Water for inj. (sterile) 20 ML 10 ML IVP SCH (10:29)
[2018-01-22] MEDS: Aspirin Enteric Coated 81 MG Tablet PO SCH (10:32)
[2018-01-22] MEDS: Verapamil ER (24 HR) 120 MG TABLET.ER PO SCH (10:34)
--- NOTE | 2018-01-22 10:44 | Discharge Summary ---
- NOTES TO OUTPATIENT PROVIDER Notes to Outpatient Provider: Follow-up with primary care physician within a week of hospital discharge. Follow-up with [facility] within 1-2 weeks of hospital discharge. Orders not resulted at time of discharge: Pending orders 01/22/18 11:30 Heparin anti-factor XA LMWH [COAG] Timed Date of Encounter: 01/22/18 Time of Encounter: 10:41 - Discharge Diagnosis (1) SVT (supraventricular tachycardia) Priority: Primary Status: Resolved (2) UTI (urinary tract infection) Priority: Secondary Status: Acute Qualifiers: Urinary tract infection type: acute cystitis Hematuria presence: without hematuria Qualified Code(s): N39.0 - Urinary tract infection, site not specified (3) Elevated troponin Priority: Secondary Status: Resolved (4) CAD (coronary artery disease) Priority: Secondary Status: Chronic Qualifiers: Coronary Disease-Associated Artery/Lesion type: [place] artery [place] vs. transplanted heart: [place] heart Associated angina: angina presence unspecifie d Qualified Code(s): I25.10 - Atherosclerotic heart disease of [place] coronary artery without angina pectoris (5) History of CVA (cerebrovascular accident) Priority: Secondary Status: Chronic (6) Hypertension Priority: Secondary Status: Chronic Qualifiers: Hypertension type: essential hypertension Qualified Code(s): I10 - Essential (primary) hypertension Hospital course: Ms. Friedman is a 82 year old female cardiomyopathy ejection fraction 40%, CAD had history of [place] in the past, high cholesterol, hypertension, patient presented emergency room with the generalized weakness some nausea on arrival she was found in SVT given verapamil and converted to sinus rhythm work up shows patient has a UTI. patient also found to have elevated trops, cardiology consulted recommended to against intervention and recommended Heparin drip for 24-48 hours and to follow up with them as outpatient. SVT on presentation resolved, cardiology recommended to continue verapamil PO. Urine culture: no growth, patient will be discharged on PO antibiotics for 3 more days. Losartan and amlodipine were discontinued as patient was started on verapamil. recommend ed to follow with her PCP within a week for possible antihypertensive adjustment if needed. PT/OT evaluated the patient and recommended SNF/ECF but the family refused. Patient acute symptoms have resolved, and patient is hemodynamically stable to be discharge home with home services. - Time Spent with Patient Total time spent providing and/or coordinating discharge services: Greater than 30 minutes (40) - Discharge Medications Prescriptions: Amoxicillin/Clavulanate [Augmentin] 500 mg PO BIDWM 3 Days #6 tablet Verapamil ER (24 HR) [Calan SR] 120 mg PO DAILY 30 Days #30 tablet.er Home Medications: Lactose-Reduced Food [Boost Breeze] 10 ml PO BID 10/24/15 [History] Nitroglycerin 0.4 mg SL Q5MIN PRN #0 tab.subl 10/25/15 [Rx] Aspirin Enteric Coated [Aspirin EC] 81 mg PO DAILY 05/02/16 [History] Clopidogrel [Plavix] 75 mg PO DAILY #30 tablet 03/01/17 [Rx] Atorvastatin [Lipitor] 10 mg PO HS 10/17/17 [History] Carvedilol 12.5 mg PO BID 10/17/17 [History] DULoxetine [Cymbalta] 30 mg PO DAILY 10/17/17 [History] Oxycodone HCl/Acetaminophen [Percocet 5-325 mg Tablet] 1 tab PO TID PRN 01/20/18 [History] traZODone [TraZODone] 50 mg PO HS 01/20/18 [History] Amoxicillin/Clavulanate [Augmentin] 500 mg PO BIDWM 3 Days #6 tablet 01/22/18 [Rx] Verapamil ER (24 HR) [Calan SR] 120 mg PO DAILY 30 Days #30 tablet.er 01/22/18 [Rx] Allergies/Adverse Reactions: Allergy/AdvReac Type Severity Reaction Status Date / Time tramadol Allergy Rash Verified 10/17/17 12:47 Date of admission: 01/20/18 10:18 Primary care physician: Ana Oliveros MD Consults: 01/20/18 10:11 Consult to Cardiology [CONS] Stat Comment: Consulting Provider: Cardiology Alessandra Reason for Consult: SVT Call Completed: No 01/20/18 12:40 Consult to Director Of Pulmonary Unit [CONS] Routine Reason for SW Consult: evaluate and treat 01/20/18 12:41 Consult to Occupational Therapy [CONS] Routine Comment: Evaluate, develop and implement POC Reason for Consult: evaluate and treat Does patient have active BEDREST order?: No Is patient medically & hemodynamically stable?: Yes 01/20/18 18:46 Consult to Nutrition [CONS] Routine Comment: Consulting Provider: NUTRITION Reason for Dietary Consult: MST Score 01/21/18 08:36 Consult to Physical Therapy [CONS] Routine Comment: Evaluate, develop and implement POC Reason for Consult: weakness Does patient have active BEDREST order?: No Is patient medically & hemodynamically stable?: Yes Patient assessed for mobility or mobilized this visit?: Yes - Constitutional Vitals: Temp Pulse Resp BP Pulse Ox 97.8 F 54 16 132/55 94 01/22/18 07:11 01/22/18 07:11 01/22/18 07:11 01/22/18 07:11 01/22/18 07:11 Exam: Vitals: Reviewed. General: Alert and oriented x4. In no distress HEENT: EOM, pupils equal, round and reactive. Cardiovascular: RRR, Normal S1 & S2, no rubs, murmurs or gallops. Lungs: Clear to auscultation bilaterally., no wheezes or crackles. Abdomen: Soft, non-tender, no rigidity. NABS in all 4 quadrants Extremities: No edema. strength is 5/5 in the upper and lower extre b/l. Neurological: Normal motor skills. Mild to moderate dementia. Rest of the physical exam is non contributory - Patient Status Disposition: Home Health Service Condition: Good Functional capacity at discharge: independent ambulation Overall status at discharge: patient is progressing back to baseline - Discharge Instructions Follow Up With: Ana Oliveros MD [Primary Care Provider] - - Diet and Activity Activity: as per physical therapy Diet: advance to your usual diet
[2018-01-22 10:51] VITALS: BP 124/79
--- NOTE | 2018-01-22 10:54 | Physician Discharge Referral ---
Home Health/Hosp Referral Info Transfer to: Home Health - Diagnosis (1) SVT (supraventricular tachycardia) Priority: Primary Status: Resolved (2) UTI (urinary tract infection) Priority: Primary Status: Acute (3) Elevated troponin Priority: Secondary Status: Resolved (4) CAD (coronary artery disease) Priority: Secondary Status: Chronic (5) History of CVA (cerebrovascular accident) Priority: Secondary Status: Chronic (6) Hypertension Priority: Secondary Status: Chronic - Respiratory Orders None Smoking Cessation: Smoking cessation has been advised. For more information, call the [place] Tobacco Quit Line at 0-816-PFCU-NOW. - Diet/Nutrition Diet/Nutrition Orders: Regular - Activity Activity Orders: Ambulate - Services Needed Following services are medically necessary services: Home Health Aide, Physical Therapy, Occupational Therapy - Transfer Medications Prescriptions: Amoxicillin/Clavulanate [Augmentin] 500 mg PO BIDWM 3 Days #6 tablet Verapamil ER (24 HR) [Calan SR] 120 mg PO DAILY 30 Days #30 tablet.er Home Medications: Lactose-Reduced Food [Boost Breeze] 10 ml PO BID 10/24/15 [History] Nitroglycerin 0.4 mg SL Q5MIN PRN #0 tab.subl 10/25/15 [Rx] Aspirin Enteric Coated [Aspirin EC] 81 mg PO DAILY 05/02/16 [History] Clopidogrel [Plavix] 75 mg PO DAILY #30 tablet 03/01/17 [Rx] Atorvastatin [Lipitor] 10 mg PO HS 10/17/17 [History] Carvedilol 12.5 mg PO BID 10/17/17 [History] DULoxetine [Cymbalta] 30 mg PO DAILY 10/17/17 [History] Oxycodone HCl/Acetaminophen [Percocet 5-325 mg Tablet] 1 tab PO TID PRN 01/20/18 [History] traZODone [TraZODone] 50 mg PO HS 01/20/18 [History] Amoxicillin/Clavulanate [Augmentin] 500 mg PO BIDWM 3 Days #6 tablet 01/22/18 [Rx] Verapamil ER (24 HR) [Calan SR] 120 mg PO DAILY 30 Days #30 tablet.er 01/22/18 [Rx] Allergies/Adverse Reactions: Allergy/AdvReac Type Severity Reaction Status Date / Time tramadol Allergy Rash Verified 10/17/17 12:47 Certification: Further, I certify that my clinical findings support that this patient is homebound (i.e. absences from home require considerable and taxing effort and are for medical reasons or orthodoxy services or infrequently or short duration when for other reasons) because: Homebound Reason: Patient requires assistance of a person or device to safely leave home Attestation: My signature below is to certify that this patient is under my care and that I, or nurse practitioner, or a physician's assistant professor of life sciences working with me, has a [id number] encounter with this patient.
== END 2018-01-22 17:18 | disposition home health service (06) ==
LOC: EMEROOARM 07:20 → 2ANU 07:20 → SUATTDRO 10:18 → 2ANU 11:35
PROVIDERS: ADMIT Internal Medicine Cardiovascular Disease; ATTEND Internal Medicine